=== PATIENT | male | born 1940 | race Caucasian/White ===

== ENCOUNTER 2020-06-28 14:33 | Inpatient (IN) ==
[2020-06-28] MEDS ORDERED: Isovue-370 500 ML BOTTLE IVP ONE (14:53)
[2020-06-28 15:10] LABS: Basophils % 0.2 %; Eosinophils % 0.1 %; Immature Granulocytes % 0.5 % (0-4); Lymphocytes % 5.3 %; Mean Corpuscular HGB Conc 33.3 g/dL (31.6-35.5); Mean Corpuscular Hemoglobin 29.2 pg (28.0-33.3); Mean Corpuscular Volume 87.7 fL (83.0-100.0); Mean Platelet Volume 10.2 fL (9.4-12.4); Monocytes % 5.3 %; Neutrophils # 16.4 K/mcL (1.6-8.9); Platelet Count 345 K/mcL (140-400); Red Blood Count 5.13 M/mcL (4.19-5.50); Red Cell Distribution Width 13.1 % (11.5-14.5); Segmented Neutrophils % 88.6 %; White Blood Count 18.5 K/mcL (4.3-11.1)
[2020-06-28 15:33] LABS: Alanine Aminotransferase 12 Units/L (7-52); Albumin 4.5 g/dL (3.5-5.7); Albumin/Globulin Ratio 1.2 (1.1-2.2); Alkaline Phosphatase 61 Units/L (34-104); Aspartate Amino Transferase 15 Units/L (13-39); BUN/Creatinine Ratio 30 (6-26); Bilirubin,Direct 0.4 mg/dL (0.0-0.2); Bilirubin,Indirect 0.5 mg/dL (0.0-1.0); Bilirubin,Total 0.9 mg/dL (0.3-1.0); Blood Urea Nitrogen 30 mg/dL (8-23); Carbon Dioxide 30 mEq/L (23-29); Chloride 90 mEq/L (98-107); Globulin 3.9 g/dL (2.4-3.5); Glucose 118 mg/dL (70-105); Lipase 21 Units/L (11-82); Osmolality,Calculated 287 (280-300); Potassium 3.1 mEq/L (3.5-5.1); Sodium 135 mEq/L (136-145); Total Protein 8.4 g/dL (6.4-8.9); eGFR For African Americans > 60 (> 60); eGFR For Non-African Americans > 60 (> 60)
[2020-06-28] MEDS ORDERED: Ondansetron 4 MG/2 ML VIAL IVP PRN (17:52)
[2020-06-28] MEDS ORDERED: Naloxone 0.4 MG/ML INJ IVP PRN (17:52)
[2020-06-28 18:10] LABS: Bacteria,Urine Few per hpf (None-Few); Bilirubin,Urine Negative (Negative); Blood,Urine Negative (Negative); Clarity,Urine Turbid (Clear); Color,Urine Yellow (Yellow); Glucose,Urine (UA) Normal (Normal); Hyaline Casts,Urine Many per lpf (None Seen); Ketones,Urine 60 mg/dL (Negative); Leukocyte Esterase,Urine Negative (Negative); Mucus,Urine Few per lpf (None-Few); Nitrite,Urine Negative (Negative); Protein,Urine Trace mg/dL (Neg-Trace); Specific Gravity,Urine 1.025 (1.010-1.025); Squamous Epithelial Cell,Urine Few per hpf (None-Few)
[2020-06-28] MEDS: 0.9 % Sodium Chloride 1,000 ML IVC SCH (20:33)
[2020-06-29] MEDS: Piperacillin/Tazobactam 3.375 GM in 0.9 % Sodium Chloride Mini Bag 100 ML IVPB SCH ×3 (01:12→17:35)
[2020-06-29] MEDS: 0.9 % Sodium Chloride 1,000 ML IVC SCH ×3 (05:34→21:09)
[2020-06-29 05:56] LABS: Basophils % 0.3 %; Eosinophils # 0.1 K/mcL (0.0-0.6); Eosinophils % 0.5 %; Hematocrit 38.2 % (37.5-50.1); Immature Granulocytes % 0.7 % (0-4); Lymphocytes # 1.1 K/mcL (0.6-4.6); Lymphocytes % 8.1 %; Mean Corpuscular HGB Conc 33.5 g/dL (31.6-35.5); Mean Corpuscular Hemoglobin 29.4 pg (28.0-33.3); Mean Corpuscular Volume 87.6 fL (83.0-100.0); Mean Platelet Volume 9.8 fL (9.4-12.4); Monocytes # 0.8 K/mcL (0.0-1.3); Monocytes % 6.5 %; Neutrophils # 10.9 K/mcL (1.6-8.9); Platelet Count 278 K/mcL (140-400); Red Blood Count 4.36 M/mcL (4.19-5.50); Red Cell Distribution Width 13.2 % (11.5-14.5); Segmented Neutrophils % 83.9 %
[2020-06-29 05:59] LABS: Hemoglobin 12.8 g/dL (12.9-16.9); INR 1.2; Prothrombin Time 13.7 Seconds (9.4-12.1)
[2020-06-29 06:02] LABS: Activated Partial Thrombo Time 30.3 Seconds (26.0-36.0)
[2020-06-29 06:15] LABS: BUN/Creatinine Ratio 34 (6-26); Blood Urea Nitrogen 25 mg/dL (8-23); Calcium 9.1 mg/dL (8.6-10.3); Carbon Dioxide 30 mEq/L (23-29); Chloride 95 mEq/L (98-107); Glucose 104 mg/dL (70-105); Osmolality,Calculated 287 (280-300); Sodium 136 mEq/L (136-145); eGFR For African Americans > 60 (> 60); eGFR For Non-African Americans > 60 (> 60)
[2020-06-29] MEDS ORDERED: Potassium Chloride 40 MEQ, Lidocaine 1% 2 ML in 0.9 % Sodium Chloride 500 ML IVPB ONE (07:37)
[2020-06-29 08:02] LABS: Magnesium 1.7 mg/dL (1.6-2.6); Phosphorous 2.6 mg/dL (2.7-4.5)
[2020-06-29 09:08] LABS: Adenovirus Not Detected (Not Detect); Coronavirus 229E Not Detected (Not Detect); Coronavirus HKU1 Not Detected (Not Detect); Coronavirus NL63 Not Detected (Not Detect); Coronavirus OC43 Not Detected (Not Detect); SARS-CoV-2 Not Detected (Not Detect)
[2020-06-29 09:09] LABS: Bordetella Pertussis Not Detected (Not Detect); Chlamydophila pneumoniae Not Detected (Not Detect); Human Metapneumovirus Not Detected (Not Detect); Human Rhinovirus/Enterovirus Not Detected (Not Detect); Influenza A Subtype 2009 H1 Not Detected (Not Detect); Influenza B Not Detected (Not Detect); Mycoplasma pneumoniae Not Detected (Not Detect); Parainfluenza Virus 1 Not Detected (Not Detect); Parainfluenza Virus 2 Not Detected (Not Detect); Parainfluenza Virus 3 Not Detected (Not Detect); Parainfluenza Virus 4 Not Detected (Not Detect); Respiratory Syncytial Virus Not Detected (Not Detect)
[2020-06-29] MEDS ORDERED: *HR* Succinylcholine 200 MG/10 ML VIAL IVP ONE (11:05)
[2020-06-29] MEDS ORDERED: *HR* Midazolam HCl 2 MG/2 ML VIAL ONE (11:05)
[2020-06-29] MEDS ORDERED: Dexamethasone 4 MG/ML VIAL ONE (11:06)
[2020-06-29] MEDS ORDERED: *HR* Propofol 200 MG/20 ML VIAL IVP ONE (11:06)
[2020-06-29] MEDS ORDERED: *HR* HYDROmorphone (PF) 1 MG/ML SYRINGE IVP PRN ×2 (11:06→16:42)
[2020-06-29] MEDS ORDERED: *HR* Labetalol 20 MG/4 ML SYRINGE IVP PRN (11:06)
[2020-06-29] MEDS ORDERED: Lidocaine -MPF 2% 2 ML VIAL ONE (11:06)
[2020-06-29] MEDS ORDERED: *HR* FentaNYL (PF) 100 MCG/2 ML VIAL ONE ×3 (11:06→13:58)
[2020-06-29] MEDS ORDERED: Ondansetron 4 MG/2 ML VIAL IVP PRN ×2 (11:06→16:48)
[2020-06-29] MEDS ORDERED: *HR* Rocuronium Bromide 50 MG/5 ML VIAL ONE (11:06)
[2020-06-29] MEDS ORDERED: *HR* OxyCODONE Immed Rel 5 MG TABLET PO PRN (11:06)
[2020-06-29] MEDS ORDERED: EPHEDrine 50 MG/ML VIAL ONE (11:08)
[2020-06-29] MEDS ORDERED: Albumin Human 5% 12.5 GM/250 ML IV.SOLN ONE (11:10)
[2020-06-29] MEDS ORDERED: *HR* Vasopressin 20 UNIT/ML VIAL ONE (11:11)
[2020-06-29] MEDS ORDERED: Lidocaine HCL 4 ML Topical Solution (Laryng-O-Jet Kit Sterile Pak) TP ONE (11:13)
[2020-06-29] MEDS ORDERED: *HR* PHENYLEPHRINE 1,000 MCG/10 ML SYRINGE IVP ONE (11:46)
[2020-06-29] MEDS ORDERED: *HR* HYDROMORPHONE 2 MG/ML VIAL ONE (11:56)
[2020-06-29] MEDS ORDERED: Potassium Phosphate 44 MEQ in 0.9 % Sodium Chloride 250 ML IVPB ONE ×2 (13:37→16:48)
[2020-06-29] MEDS ORDERED: *HR* HYDROmorphone (PF) 1 MG/ML SYRINGE IVP ONE ×2 (16:41→16:48)
[2020-06-29] MEDS ORDERED: Naloxone 0.4 MG/ML INJ IVP PRN (16:48)
[2020-06-29] MEDS: *HR* Heparin 5,000 UNIT/ML VIAL SQ SCH (17:25)
[2020-06-29] MEDS ORDERED: *HR* Heparin 5,000 UNIT/ML VIAL SQ SCH (18:00)
[2020-06-29] MEDS ORDERED: 0.9 % Sodium Chloride 1,000 ML IVC ONE (18:07)
[2020-06-30] MEDS ORDERED: Piperacillin/Tazobactam 3.375 GM in 0.9 % Sodium Chloride Mini Bag 100 ML IVPB SCH ×2
[2020-06-30] MEDS: *HR* HYDROmorphone (PF) 1 MG/ML SYRINGE IVP PRN ×4 (02:22→16:12)
[2020-06-30] MEDS: Piperacillin/Tazobactam 3.375 GM in 0.9 % Sodium Chloride Mini Bag 100 ML IVPB SCH ×3 (02:32→17:21)
[2020-06-30] MEDS: 0.9 % Sodium Chloride 1,000 ML IVC SCH ×3 (02:34→17:22)
[2020-06-30] MEDS: *HR* Heparin 5,000 UNIT/ML VIAL SQ SCH ×2 (05:44→17:21)
[2020-06-30 07:00] LABS: Hematocrit 37.4 % (37.5-50.1); Mean Corpuscular HGB Conc 32.1 g/dL (31.6-35.5); Mean Corpuscular Hemoglobin 29.4 pg (28.0-33.3); Mean Corpuscular Volume 91.7 fL (83.0-100.0); Mean Platelet Volume 10.3 fL (9.4-12.4); Platelet Count 257 K/mcL (140-400); Red Blood Count 4.08 M/mcL (4.19-5.50); Red Cell Distribution Width 13.4 % (11.5-14.5)
[2020-06-30 07:17] LABS: BUN/Creatinine Ratio 24 (6-26); Blood Urea Nitrogen 20 mg/dL (8-23); Calcium 8.1 mg/dL (8.6-10.3); Carbon Dioxide 28 mEq/L (23-29); Chloride 105 mEq/L (98-107); Glucose 121 mg/dL (70-105); Osmolality,Calculated 300 (280-300); Sodium 143 mEq/L (136-145); eGFR For African Americans > 60 (> 60); eGFR For Non-African Americans > 60 (> 60)
[2020-06-30 08:10] LABS: Lymphocytes # 1.3 K/mcL (0.6-4.6); Monocytes # 0.4 K/mcL (0.0-1.3); Neutrophils # 19.3 K/mcL (1.6-8.9); Platelet Estimate Normal (Normal)
[2020-06-30] MEDS: Levothyroxine Sodium 100 MCG VIAL IVP SCH (08:25)
[2020-06-30] MEDS: Pantoprazole 40 MG VIAL IVP SCH (08:26)
[2020-06-30] MEDS ORDERED: Pantoprazole 40 MG VIAL IVP SCH (09:00)
[2020-06-30 17:19] LABS: ABG Base Excess 3 mEq/L (-2 to 3); ABG HCO3 28 mEq/L (21-27); ABG Oxygen Saturation 91 % (95-98); ABG PCO2 45 mmHg (35-45); ABG PO2 61 mmHg (85-104); ABG TCO2 29 mEq/L (20-26)
[2020-06-30] MEDS ORDERED: hydrALAZINE 10 MG TABLET PO PRN (17:51)
[2020-06-30] MEDS ORDERED: *HR* Metoprolol 5 MG/5 ML VIAL IVP PRN (17:51)
[2020-07-01] MEDS: Piperacillin/Tazobactam 3.375 GM in 0.9 % Sodium Chloride Mini Bag 100 ML IVPB SCH ×3 (01:31→17:28)
[2020-07-01] MEDS: 0.9 % Sodium Chloride 1,000 ML IVC SCH ×3 (02:41→17:30)
[2020-07-01 04:27] LABS: Basophils % 0.1 %; Hematocrit 31.7 % (37.5-50.1); Immature Granulocytes % 0.7 % (0-4); Lymphocytes # 0.6 K/mcL (0.6-4.6); Lymphocytes % 3.1 %; Mean Corpuscular HGB Conc 31.9 g/dL (31.6-35.5); Mean Corpuscular Volume 91.1 fL (83.0-100.0); Mean Platelet Volume 10.7 fL (9.4-12.4); Monocytes # 0.6 K/mcL (0.0-1.3); Monocytes % 2.9 %; Neutrophils # 18.3 K/mcL (1.6-8.9); Platelet Count 217 K/mcL (140-400); Red Blood Count 3.48 M/mcL (4.19-5.50); Red Cell Distribution Width 13.8 % (11.5-14.5); Segmented Neutrophils % 93.2 %; White Blood Count 19.6 K/mcL (4.3-11.1)
[2020-07-01 04:33] LABS: Hemoglobin 10.1 g/dL (12.9-16.9)
[2020-07-01 04:42] LABS: BUN/Creatinine Ratio 28 (6-26); Blood Urea Nitrogen 16 mg/dL (8-23); Calcium 7.6 mg/dL (8.6-10.3); Carbon Dioxide 28 mEq/L (23-29); Chloride 109 mEq/L (98-107); Glucose 111 mg/dL (70-105); Osmolality,Calculated 300 (280-300); Potassium 3.1 mEq/L (3.5-5.1); Sodium 144 mEq/L (136-145); eGFR For African Americans > 60 (> 60); eGFR For Non-African Americans > 60 (> 60)
[2020-07-01 04:44] LABS: Magnesium 1.6 mg/dL (1.6-2.6); Phosphorous 1.8 mg/dL (2.7-4.5)
[2020-07-01] MEDS: *HR* Heparin 5,000 UNIT/ML VIAL SQ SCH ×2 (05:40→17:30)
[2020-07-01] MEDS: Pantoprazole 40 MG VIAL IVP SCH (07:38)
[2020-07-01] MEDS: Levothyroxine Sodium 100 MCG VIAL IVP SCH (07:39)
[2020-07-01] MEDS ORDERED: Calcium Gluconate 1gm/50mL 1 GM/50 ML BAG IVPB ONE (07:42)
[2020-07-01] MEDS ORDERED: Isovue-370 500 ML BOTTLE IVP ONE ×2 (11:14→11:52)
[2020-07-01] MEDS: Multivitamin Liquid 15 ML UDC PO SCH (11:28)
[2020-07-01] MEDS: Gabapentin 300 MG CAPSULE PO SCH ×3 (11:28→20:11)
[2020-07-01 11:41] LABS: Hematocrit 33.7 % (37.5-50.1); Hemoglobin 10.7 g/dL (12.9-16.9)
[2020-07-01] MEDS: Ipratropium/Albuterol Neb 3 ML IH SCH ×4 (11:58→23:40)
[2020-07-01 11:59] LABS: ABG Base Excess 5 mEq/L (-2 to 3); ABG HCO3 29 mEq/L (21-27); ABG Oxygen Saturation 93 % (95-98); ABG PCO2 42 mmHg (35-45); ABG PH 7.45 pH Units (7.32-7.45); ABG PO2 65 mmHg (85-104); ABG TCO2 31 mEq/L (20-26)
[2020-07-01 12:22] LABS: Ferritin 268 ng/mL (20-250); Iron < 10 mcg/dL (65-175); Transferrin 141 mg/dL (203-362)
[2020-07-01 12:24] LABS: Folate 7.1 ng/mL (3.0-16.0)
[2020-07-01 13:45] LABS: Thyroid Stimulating Hormone 1.127 mcIU/mL (0.340-5.600)
[2020-07-01] MEDS ORDERED: *HR* LORazepam 2 MG/ML VIAL IVP ONE (13:48)
[2020-07-01] MEDS: Acetaminophen IV 1,000 MG/100 ML INFUS..BTL IVPB SCH ×2 (14:38→20:59)
[2020-07-01] MEDS: MetroNIDAZOLE 500 MG/100 ML 500 MG/100 ML BAG IVPB SCH ×2 (14:38→20:14)
[2020-07-01] MEDS: Vancomycin 1,250 MG/262.5 ML IV.SOLN IVPB SCH ×2 (14:38→23:30)
[2020-07-01] MEDS ORDERED: Iron Sucrose Complex 400 MG in 0.9 % Sodium Chloride 250 ML IVPB ONE (16:21)
[2020-07-01] MEDS ORDERED: Haloperidol Lactate 5 MG/ML VIAL IM ONE (23:12)
[2020-07-02] MEDS: 0.9 % Sodium Chloride 1,000 ML IVC SCH ×2 (01:42→11:11)
[2020-07-02] MEDS: Piperacillin/Tazobactam 3.375 GM in 0.9 % Sodium Chloride Mini Bag 100 ML IVPB SCH ×3 (01:43→17:16)
[2020-07-02] MEDS: Ipratropium/Albuterol Neb 3 ML IH SCH ×6 (03:53→23:26)
[2020-07-02] MEDS: *HR* Heparin 5,000 UNIT/ML VIAL SQ SCH ×2 (04:55→17:26)
[2020-07-02] MEDS: MetroNIDAZOLE 500 MG/100 ML 500 MG/100 ML BAG IVPB SCH (04:55)
[2020-07-02 05:20] LABS: Basophils % 0.1 %; Hematocrit 31.3 % (37.5-50.1); Hemoglobin 10.1 g/dL (12.9-16.9); Immature Granulocytes % 0.9 % (0-4); Lymphocytes # 0.6 K/mcL (0.6-4.6); Lymphocytes % 2.6 %; Mean Corpuscular HGB Conc 32.3 g/dL (31.6-35.5); Mean Corpuscular Hemoglobin 29.6 pg (28.0-33.3); Mean Corpuscular Volume 91.8 fL (83.0-100.0); Mean Platelet Volume 11.2 fL (9.4-12.4); Monocytes # 0.5 K/mcL (0.0-1.3); Monocytes % 2.1 %; Neutrophils # 23.2 K/mcL (1.6-8.9); Platelet Count 204 K/mcL (140-400); Red Blood Count 3.41 M/mcL (4.19-5.50); Segmented Neutrophils % 94.3 %; White Blood Count 24.6 K/mcL (4.3-11.1)
[2020-07-02 06:44] LABS: Alanine Aminotransferase 10 Units/L (7-52); Albumin 2.8 g/dL (3.5-5.7); Alkaline Phosphatase 46 Units/L (34-104); Aspartate Amino Transferase 20 Units/L (13-39); BUN/Creatinine Ratio 20 (6-26); Bilirubin,Total 0.6 mg/dL (0.3-1.0); Blood Urea Nitrogen 10 mg/dL (8-23); Carbon Dioxide 28 mEq/L (23-29); Chloride 110 mEq/L (98-107); Globulin 2.9 g/dL (2.4-3.5); Glucose 111 mg/dL (70-105); Magnesium 1.6 mg/dL (1.6-2.6); Osmolality,Calculated 300 (280-300); Phosphorous 1.5 mg/dL (2.7-4.5); Potassium 2.7 mEq/L (3.5-5.1); Sodium 145 mEq/L (136-145); Total Protein 5.7 g/dL (6.4-8.9); eGFR For African Americans > 60 (> 60); eGFR For Non-African Americans > 60 (> 60)
[2020-07-02 06:54] LABS: Platelet Estimate Normal (Normal)
[2020-07-02] MEDS: Acetaminophen IV 1,000 MG/100 ML INFUS..BTL IVPB SCH ×4 (07:52→21:59)
[2020-07-02] MEDS ORDERED: MethylPREDNISolone 40 MG/ML VIAL IVP SCH (09:00)
[2020-07-02] MEDS ORDERED: Potassium Phosphate 44 MEQ in 0.9 % Sodium Chloride 250 ML IVPB ONE (09:11)
[2020-07-02] MEDS: Pantoprazole 40 MG VIAL IVP SCH (10:22)
[2020-07-02] MEDS: Levothyroxine Sodium 100 MCG VIAL IVP SCH (10:23)
[2020-07-02] MEDS: Gabapentin 300 MG CAPSULE PO SCH ×3 (11:02→19:33)
[2020-07-02] MEDS: Multivitamin Liquid 15 ML UDC PO SCH (11:02)
[2020-07-02] MEDS ORDERED: Furosemide 40 MG/4 ML VIAL IVP ONE (11:34)
[2020-07-02] MEDS: MethylPREDNISolone 40 MG/ML VIAL IVP SCH ×2 (12:19→17:09)
[2020-07-02] MEDS: Vancomycin 1,250 MG/262.5 ML IV.SOLN IVPB SCH (13:20)
[2020-07-02] MEDS ORDERED: Morphine Sulfate 2 MG/ML SYRINGE IVP ONE (16:48)
[2020-07-02] MEDS ORDERED: *HR* Metoprolol 5 MG/5 ML VIAL IVP PRN (16:49)
[2020-07-03] MEDS: MethylPREDNISolone 40 MG/ML VIAL IVP SCH ×4 (00:36→23:29)
[2020-07-03] MEDS: Vancomycin 1,250 MG/262.5 ML IV.SOLN IVPB SCH (00:36)
[2020-07-03] MEDS: Piperacillin/Tazobactam 3.375 GM in 0.9 % Sodium Chloride Mini Bag 100 ML IVPB SCH ×3 (01:52→17:10)
[2020-07-03] MEDS: Ipratropium/Albuterol Neb 3 ML IH SCH ×6 (03:39→23:54)
[2020-07-03] MEDS: Acetaminophen IV 1,000 MG/100 ML INFUS..BTL IVPB SCH ×3 (04:27→14:30)
[2020-07-03] MEDS: *HR* Heparin 5,000 UNIT/ML VIAL SQ SCH ×2 (06:13→17:10)
[2020-07-03] MEDS: Pantoprazole 40 MG VIAL IVP SCH (07:36)
[2020-07-03] MEDS: Levothyroxine Sodium 100 MCG VIAL IVP SCH (07:36)
[2020-07-03 07:37] LABS: Hematocrit 36.2 % (37.5-50.1); Hemoglobin 11.7 g/dL (12.9-16.9); Mean Corpuscular HGB Conc 32.3 g/dL (31.6-35.5); Mean Corpuscular Hemoglobin 29.3 pg (28.0-33.3); Mean Corpuscular Volume 90.7 fL (83.0-100.0); Mean Platelet Volume 11.2 fL (9.4-12.4); Platelet Count 232 K/mcL (140-400); Red Blood Count 3.99 M/mcL (4.19-5.50); Red Cell Distribution Width 14.1 % (11.5-14.5)
[2020-07-03] MEDS: Gabapentin 300 MG CAPSULE PO SCH ×3 (07:37→19:39)
[2020-07-03] MEDS: Multivitamin Liquid 15 ML UDC PO SCH (07:37)
[2020-07-03 08:27] LABS: Alanine Aminotransferase 9 Units/L (7-52); Albumin 2.9 g/dL (3.5-5.7); Alkaline Phosphatase 38 Units/L (34-104); Aspartate Amino Transferase 18 Units/L (13-39); BUN/Creatinine Ratio 21 (6-26); Bilirubin,Total 0.7 mg/dL (0.3-1.0); Blood Urea Nitrogen 14 mg/dL (8-23); Calcium 7.8 mg/dL (8.6-10.3); Carbon Dioxide 31 mEq/L (23-29); Chloride 108 mEq/L (98-107); Globulin 2.9 g/dL (2.4-3.5); Glucose 129 mg/dL (70-105); Magnesium 1.5 mg/dL (1.6-2.6); Osmolality,Calculated 310 (280-300); Phosphorous 1.8 mg/dL (2.7-4.5); Potassium 2.5 mEq/L (3.5-5.1); Sodium 149 mEq/L (136-145); Total Protein 5.8 g/dL (6.4-8.9); eGFR For African Americans > 60 (> 60); eGFR For Non-African Americans > 60 (> 60)
[2020-07-03] MEDS: Vancomycin 1,750 MG/517.5 ML IV.SOLN IVPB SCH ×2 (13:01→23:29)
[2020-07-03] MEDS ORDERED: Potassium Chloride 20 MEQ in D5% in Water 1,000 ML IVC SCH (14:00)
[2020-07-03] MEDS ORDERED: Potassium Phosphate 44 MEQ in 0.9 % Sodium Chloride 250 ML IVPB ONE (14:03)
[2020-07-03] MEDS ORDERED: Calcium Gluconate 1gm/50mL 1 GM/50 ML BAG IVPB ONE (14:10)
[2020-07-03 18:00] LABS: BUN/Creatinine Ratio 25 (6-26); Blood Urea Nitrogen 20 mg/dL (8-23); Calcium 7.9 mg/dL (8.6-10.3); Carbon Dioxide 29 mEq/L (23-29); Chloride 111 mEq/L (98-107); Glucose 158 mg/dL (70-105); Magnesium 2.2 mg/dL (1.6-2.6); Osmolality,Calculated 318 (280-300); Phosphorous 2.6 mg/dL (2.7-4.5); Potassium 3.2 mEq/L (3.5-5.1); Sodium 151 mEq/L (136-145); eGFR For African Americans > 60 (> 60); eGFR For Non-African Americans > 60 (> 60)
[2020-07-04] MEDS: Piperacillin/Tazobactam 3.375 GM in 0.9 % Sodium Chloride Mini Bag 100 ML IVPB SCH ×3 (01:35→17:13)
[2020-07-04] MEDS: Acetaminophen IV 1,000 MG/100 ML INFUS..BTL IVPB SCH ×2 (01:35→13:21)
[2020-07-04] MEDS: Ipratropium/Albuterol Neb 3 ML IH SCH ×6 (04:20→23:59)
[2020-07-04] MEDS: *HR* Heparin 5,000 UNIT/ML VIAL SQ SCH ×2 (05:33→17:13)
[2020-07-04 06:38] LABS: Hematocrit 34.2 % (37.5-50.1); Hemoglobin 10.7 g/dL (12.9-16.9); Mean Corpuscular HGB Conc 31.3 g/dL (31.6-35.5); Mean Corpuscular Hemoglobin 28.6 pg (28.0-33.3); Mean Corpuscular Volume 91.4 fL (83.0-100.0); Mean Platelet Volume 11.2 fL (9.4-12.4); Platelet Count 217 K/mcL (140-400); Red Blood Count 3.74 M/mcL (4.19-5.50); Red Cell Distribution Width 14.4 % (11.5-14.5); White Blood Count 26.5 K/mcL (4.3-11.1)
[2020-07-04 06:50] LABS: BUN/Creatinine Ratio 31 (6-26); Blood Urea Nitrogen 24 mg/dL (8-23); Calcium 8.1 mg/dL (8.6-10.3); Carbon Dioxide 33 mEq/L (23-29); Chloride 111 mEq/L (98-107); Glucose 162 mg/dL (70-105); Osmolality,Calculated 322 (280-300); Phosphorous 2.1 mg/dL (2.7-4.5); Sodium 152 mEq/L (136-145); eGFR For African Americans > 60 (> 60); eGFR For Non-African Americans > 60 (> 60)
[2020-07-04] MEDS ORDERED: Calcium Gluconate 1gm/50mL 1 GM/50 ML BAG IVPB ONE (07:30)
[2020-07-04] MEDS: MethylPREDNISolone 40 MG/ML VIAL IVP SCH ×2 (08:41→17:13)
[2020-07-04] MEDS: Levothyroxine Sodium 100 MCG VIAL IVP SCH (08:41)
[2020-07-04] MEDS: Multivitamin Liquid 15 ML UDC PO SCH (08:42)
[2020-07-04] MEDS: Gabapentin 300 MG CAPSULE PO SCH ×3 (08:42→23:26)
[2020-07-04] MEDS: Pantoprazole 40 MG VIAL IVP SCH (08:42)
[2020-07-04] MEDS ORDERED: Potassium Phosphate 44 MEQ in 0.9 % Sodium Chloride 250 ML IVPB ONE (09:15)
[2020-07-04] MEDS: Potassium Chloride 20 MEQ in D5% in Water 1,000 ML IVC SCH (09:20)
[2020-07-04] MEDS ORDERED: *HR* Norepinephrine 4 MG/4 ML VIAL IVC ONE (09:53)
[2020-07-04] MEDS ORDERED: Albumin Human 5% 25.0 GM/500 ML IV.SOLN ONE (09:53)
[2020-07-04] MEDS ORDERED: *HR* Vasopressin 20 UNIT/ML VIAL ONE (09:54)
[2020-07-04] MEDS ORDERED: Lidocaine -MPF 4% 5 ML AMPUL ONE (10:13)
[2020-07-04] MEDS ORDERED: EPHEDrine 50 MG/ML VIAL ONE (10:19)
[2020-07-04] MEDS ORDERED: *HR* Propofol 200 MG/20 ML VIAL IVP ONE (10:19)
[2020-07-04] MEDS ORDERED: *HR* PHENYLEPHRINE 1,000 MCG/10 ML SYRINGE IVP ONE (10:19)
[2020-07-04] MEDS ORDERED: *HR* FentaNYL (PF) 100 MCG/2 ML VIAL ONE (10:20)
[2020-07-04] MEDS ORDERED: *HR* Succinylcholine 200 MG/10 ML VIAL IVP ONE (10:21)
[2020-07-04] MEDS ORDERED: *HR* Rocuronium Bromide 50 MG/5 ML VIAL ONE (10:21)
[2020-07-04] MEDS ORDERED: Dexamethasone 4 MG/ML VIAL ONE (10:21)
[2020-07-04] MEDS ORDERED: Lidocaine -MPF 2% 2 ML VIAL ONE (10:21)
[2020-07-04] MEDS ORDERED: Ondansetron 4 MG/2 ML VIAL ONE (10:21)
[2020-07-04] MEDS ORDERED: *HR* Labetalol 20 MG/4 ML SYRINGE IVP PRN (10:56)
[2020-07-04] MEDS ORDERED: Ondansetron 4 MG/2 ML VIAL IVP PRN (10:56)
[2020-07-04] MEDS ORDERED: *HR* HYDROmorphone (PF) 1 MG/ML SYRINGE IVP PRN (10:56)
[2020-07-04] MEDS: Vancomycin 1,750 MG/517.5 ML IV.SOLN IVPB SCH (13:21)
[2020-07-04 17:13] LABS: BUN/Creatinine Ratio 32 (6-26); Blood Urea Nitrogen 22 mg/dL (8-23); Calcium 7.6 mg/dL (8.6-10.3); Carbon Dioxide 33 mEq/L (23-29); Chloride 112 mEq/L (98-107); Glucose 157 mg/dL (70-105); Osmolality,Calculated 319 (280-300); Potassium 3.4 mEq/L (3.5-5.1); Sodium 151 mEq/L (136-145); eGFR For African Americans > 60 (> 60); eGFR For Non-African Americans > 60 (> 60)
[2020-07-04 18:30] LABS: Appearance of Body Fluid Hazy (Clear); Volume of Body Fluid 16 mL
[2020-07-05] MEDS: Vancomycin 1,750 MG/517.5 ML IV.SOLN IVPB SCH
[2020-07-05] MEDS: Potassium Chloride 20 MEQ in D5% in Water 1,000 ML IVC SCH ×2 (00:43→15:35)
[2020-07-05] MEDS: Acetaminophen IV 1,000 MG/100 ML INFUS..BTL IVPB SCH ×2 (01:51→13:17)
[2020-07-05] MEDS: Piperacillin/Tazobactam 3.375 GM in 0.9 % Sodium Chloride Mini Bag 100 ML IVPB SCH ×3 (01:52→16:54)
[2020-07-05] MEDS: *HR* Heparin 5,000 UNIT/ML VIAL SQ SCH ×2 (03:36→17:05)
[2020-07-05] MEDS: Ipratropium/Albuterol Neb 3 ML IH SCH ×5 (04:25→20:03)
[2020-07-05] MEDS: Levothyroxine Sodium 100 MCG VIAL IVP SCH (08:32)
[2020-07-05] MEDS: MethylPREDNISolone 40 MG/ML VIAL IVP SCH ×3 (08:33→15:36)
[2020-07-05] MEDS: Pantoprazole 40 MG VIAL IVP SCH (08:33)
[2020-07-05] MEDS ORDERED: QUEtiapine Fumarate 25 MG TABLET PO SCH (09:00)
[2020-07-05] MEDS: Vancomycin 1,500 MG/265 ML IV.SOLN IVPB SCH ×2 (09:20→22:04)
[2020-07-05 09:42] LABS: Hematocrit 35.3 % (37.5-50.1); Mean Corpuscular HGB Conc 31.2 g/dL (31.6-35.5); Mean Corpuscular Hemoglobin 29.3 pg (28.0-33.3); Mean Corpuscular Volume 93.9 fL (83.0-100.0); Mean Platelet Volume 11.4 fL (9.4-12.4); Platelet Count 199 K/mcL (140-400); Red Blood Count 3.76 M/mcL (4.19-5.50); Red Cell Distribution Width 14.6 % (11.5-14.5); White Blood Count 15.2 K/mcL (4.3-11.1)
[2020-07-05] MEDS: Multivitamin Liquid 15 ML UDC PO SCH (09:42)
[2020-07-05] MEDS: Gabapentin 300 MG CAPSULE PO SCH ×2 (09:42→15:35)
[2020-07-05 09:56] LABS: BUN/Creatinine Ratio 28 (6-26); Blood Urea Nitrogen 19 mg/dL (8-23); Calcium 7.8 mg/dL (8.6-10.3); Carbon Dioxide 36 mEq/L (23-29); Chloride 111 mEq/L (98-107); Glucose 137 mg/dL (70-105); Magnesium 1.8 mg/dL (1.6-2.6); Osmolality,Calculated 320 (280-300); Phosphorous 1.6 mg/dL (2.7-4.5); Potassium 3.3 mEq/L (3.5-5.1); Sodium 153 mEq/L (136-145); eGFR For African Americans > 60 (> 60); eGFR For Non-African Americans > 60 (> 60)
[2020-07-05] MEDS ORDERED: Potassium Phosphate 44 MEQ in 0.9 % Sodium Chloride 250 ML IVPB ONE (11:01)
[2020-07-05] MEDS: Calcium Gluconate 1gm/50mL 1 GM/50 ML BAG IVPB SCH ×2 (11:45→12:29)
[2020-07-05] MEDS: QUEtiapine Fumarate 25 MG TABLET GTUBE SCH (22:12)
[2020-07-05] MEDS: Gabapentin 300 MG CAPSULE GTUBE SCH (22:13)
[2020-07-06] MEDS: MethylPREDNISolone 40 MG/ML VIAL IVP SCH ×3 (00:10→15:24)
[2020-07-06] MEDS: Ipratropium/Albuterol Neb 3 ML IH SCH ×7 (00:23→23:02)
[2020-07-06] MEDS: Acetaminophen IV 1,000 MG/100 ML INFUS..BTL IVPB SCH ×2 (02:31→14:10)
[2020-07-06] MEDS: Piperacillin/Tazobactam 3.375 GM in 0.9 % Sodium Chloride Mini Bag 100 ML IVPB SCH ×3 (02:32→16:55)
[2020-07-06] MEDS: *HR* Heparin 5,000 UNIT/ML VIAL SQ SCH ×2 (06:23→16:54)
[2020-07-06] MEDS: Potassium Chloride 20 MEQ in D5% in Water 1,000 ML IVC SCH ×2 (06:35→09:37)
[2020-07-06 07:01] LABS: Hematocrit 33.1 % (37.5-50.1); Mean Corpuscular HGB Conc 30.2 g/dL (31.6-35.5); Mean Corpuscular Hemoglobin 28.4 pg (28.0-33.3); Mean Platelet Volume 11.6 fL (9.4-12.4); Platelet Count 198 K/mcL (140-400); Red Blood Count 3.52 M/mcL (4.19-5.50); Red Cell Distribution Width 14.6 % (11.5-14.5); White Blood Count 13.5 K/mcL (4.3-11.1)
[2020-07-06 07:23] LABS: BUN/Creatinine Ratio 28 (6-26); Blood Urea Nitrogen 20 mg/dL (8-23); Calcium 7.6 mg/dL (8.6-10.3); Carbon Dioxide 32 mEq/L (23-29); Chloride 111 mEq/L (98-107); Glucose 191 mg/dL (70-105); Magnesium 1.9 mg/dL (1.6-2.6); Osmolality,Calculated 314 (280-300); Phosphorous 1.8 mg/dL (2.7-4.5); Potassium 3.7 mEq/L (3.5-5.1); Sodium 148 mEq/L (136-145); eGFR For African Americans > 60 (> 60); eGFR For Non-African Americans > 60 (> 60)
[2020-07-06] MEDS ORDERED: Potassium Phosphate 44 MEQ in 0.9 % Sodium Chloride 250 ML IVPB ONE (07:32)
[2020-07-06] MEDS: Levothyroxine Sodium 100 MCG VIAL IVP SCH (08:16)
[2020-07-06] MEDS: QUEtiapine Fumarate 25 MG TABLET GTUBE SCH ×2 (08:18→21:22)
[2020-07-06] MEDS: Multivitamin Liquid 15 ML UDC PO SCH (08:19)
[2020-07-06] MEDS: Calcium Gluconate 1gm/50mL 1 GM/50 ML BAG IVPB SCH ×2 (08:23→09:35)
[2020-07-06] MEDS: Pantoprazole 40 MG VIAL IVP SCH (08:33)
[2020-07-06] MEDS: Gabapentin 300 MG CAPSULE GTUBE SCH ×3 (08:33→21:22)
[2020-07-06] MEDS: Vancomycin 1,500 MG/265 ML IV.SOLN IVPB SCH (08:39)
[2020-07-07] MEDS: MethylPREDNISolone 40 MG/ML VIAL IVP SCH ×3 (00:28→15:41)
[2020-07-07] MEDS: Acetaminophen IV 1,000 MG/100 ML INFUS..BTL IVPB SCH ×2 (02:41→14:00)
[2020-07-07] MEDS: Piperacillin/Tazobactam 3.375 GM in 0.9 % Sodium Chloride Mini Bag 100 ML IVPB SCH ×3 (02:41→17:20)
[2020-07-07] MEDS: Ipratropium/Albuterol Neb 3 ML IH SCH ×6 (03:51→23:48)
[2020-07-07] MEDS: *HR* Heparin 5,000 UNIT/ML VIAL SQ SCH ×2 (05:20→17:19)
[2020-07-07] MEDS: QUEtiapine Fumarate 25 MG TABLET GTUBE SCH ×2 (07:39→21:37)
[2020-07-07] MEDS: Gabapentin 300 MG CAPSULE GTUBE SCH ×3 (07:39→21:37)
[2020-07-07] MEDS: Pantoprazole 40 MG VIAL IVP SCH (07:39)
[2020-07-07] MEDS: Levothyroxine Sodium 100 MCG VIAL IVP SCH (07:40)
[2020-07-07] MEDS: Multivitamin Liquid 15 ML UDC PO SCH (07:40)
[2020-07-07] MEDS ORDERED: D5% in Water 1,000 ML IVC SCH (12:45)
[2020-07-07] MEDS ORDERED: hydrALAZINE 10 MG TABLET GTUBE PRN (21:45)
[2020-07-08] MEDS: Piperacillin/Tazobactam 3.375 GM in 0.9 % Sodium Chloride Mini Bag 100 ML IVPB SCH ×3 (01:31→17:27)
[2020-07-08] MEDS: Acetaminophen IV 1,000 MG/100 ML INFUS..BTL IVPB SCH (01:32)
[2020-07-08] MEDS: MethylPREDNISolone 40 MG/ML VIAL IVP SCH (01:32)
[2020-07-08] MEDS ORDERED: Furosemide 40 MG/4 ML VIAL IVP ONE (03:48)
[2020-07-08 03:55] LABS: ABG Base Excess 9 mEq/L (-2 to 3); ABG HCO3 36 mEq/L (21-27); ABG Oxygen Saturation 73 % (95-98); ABG PCO2 58 mmHg (35-45); ABG PO2 40 mmHg (85-104); ABG TCO2 38 mEq/L (20-26)
[2020-07-08] MEDS: Norepinephrine 4 MG/254 ML IV.SOLN IVC SCH ×2 (04:42→07:34)
[2020-07-08] MEDS ORDERED: 0.9 % Sodium Chloride 250 ML IVC SCH (04:45)
[2020-07-08 04:59] LABS: ABG Base Excess 4 mEq/L (-2 to 3); ABG HCO3 33 mEq/L (21-27); ABG Oxygen Saturation 59 % (95-98); ABG PCO2 80 mmHg (35-45); ABG PH 7.23 pH Units (7.32-7.45); ABG PO2 38 mmHg (85-104); ABG TCO2 36 mEq/L (20-26); Blood Gas Modality ASSIST CONTROL; Blood Gas VT 400 cc
[2020-07-08] MEDS ORDERED: Dexmedetomidine HCl 400 MCG/100 ML MLS IVC SCH (05:00)
[2020-07-08] MEDS ORDERED: Pantoprazole 40 MG in 0.9 % Sodium Chloride Mini Bag 100 ML IVC SCH (05:00)
[2020-07-08] MEDS ORDERED: Octreotide 400 MCG in 0.9 % Sodium Chloride 100 ML IVC SCH (05:15)
[2020-07-08] MEDS ORDERED: *HR* Midazolam HCl 2 MG/2 ML VIAL IVP ONE (05:16)
[2020-07-08] MEDS ORDERED: *HR* Midazolam HCl 5 MG/5 ML VIAL IVP ONE ×2 (05:17→05:56)
[2020-07-08] MEDS: Ipratropium/Albuterol Neb 3 ML IH SCH ×6 (05:28→23:49)
[2020-07-08] MEDS: FentaNYL (PF) 1,000 MCG/100 ML IV.SOLN IVC SCH ×2 (05:41→19:33)
[2020-07-08] MEDS ORDERED: Artificial Tears SOLN 15 ML BOTTLE BOTH EYES PRN (06:13)
[2020-07-08 06:15] LABS: Basophils % 0.2 %; Hematocrit 36.9 % (37.5-50.1); Hemoglobin 11.1 g/dL (12.9-16.9); Immature Granulocytes % 0.9 % (0-4); Lymphocytes # 0.2 K/mcL (0.6-4.6); Lymphocytes % 1.8 %; Mean Corpuscular HGB Conc 30.1 g/dL (31.6-35.5); Mean Corpuscular Hemoglobin 28.4 pg (28.0-33.3); Mean Corpuscular Volume 94.4 fL (83.0-100.0); Mean Platelet Volume 12.2 fL (9.4-12.4); Monocytes % 0.3 %; Neutrophils # 11.9 K/mcL (1.6-8.9); Platelet Count 238 K/mcL (140-400); Red Blood Count 3.91 M/mcL (4.19-5.50); Segmented Neutrophils % 96.8 %; White Blood Count 12.3 K/mcL (4.3-11.1)
[2020-07-08] MEDS ORDERED: Phenylephrine 10 MG in 0.9 % Sodium Chloride 250 ML IVC SCH (06:15)
[2020-07-08] MEDS: Midazolam HCl 50 MG/100 ML IV.SOLN IVC SCH (06:20)
[2020-07-08 06:27] LABS: INR 1.2; Prothrombin Time 13.9 Seconds (9.4-12.1)
[2020-07-08 06:31] LABS: Platelet Estimate Normal (Normal)
[2020-07-08 06:35] LABS: BUN/Creatinine Ratio 21 (6-26); Blood Urea Nitrogen 23 mg/dL (8-23); Calcium 7.3 mg/dL (8.6-10.3); Carbon Dioxide 33 mEq/L (23-29); Chloride 111 mEq/L (98-107); Glucose 146 mg/dL (70-105); Magnesium 1.7 mg/dL (1.6-2.6); Osmolality,Calculated 314 (280-300); Phosphorous 3.9 mg/dL (2.7-4.5); Sodium 149 mEq/L (136-145); eGFR For African Americans > 60 (> 60); eGFR For Non-African Americans > 60 (> 60)
[2020-07-08 06:38] LABS: ABG Base Excess 2 mEq/L (-2 to 3); ABG HCO3 31 mEq/L (21-27); ABG Oxygen Saturation 89 % (95-98); ABG PCO2 69 mmHg (35-45); ABG PH 7.26 pH Units (7.32-7.45); ABG PO2 68 mmHg (85-104); ABG TCO2 33 mEq/L (20-26); Blood Gas Modality ASSIST CONTROL; Blood Gas VT 450 cc
[2020-07-08] MEDS: *HR* Heparin 5,000 UNIT/ML VIAL SQ SCH ×2 (06:58→17:27)
[2020-07-08] MEDS ORDERED: 0.9 % Sodium Chloride 1,000 ML ONE (07:41)
[2020-07-08] MEDS ORDERED: Perflutren Lipid Microsphere 1.3 ML in 0.9 % Sodium Chloride 8.7 ML IVP PRN (07:44)
[2020-07-08 07:55] LABS: ABG Base Excess 2 mEq/L (-2 to 3); ABG HCO3 31 mEq/L (21-27); ABG Oxygen Saturation 86 % (95-98); ABG PCO2 76 mmHg (35-45); ABG PH 7.22 pH Units (7.32-7.45); ABG PO2 64 mmHg (85-104); ABG TCO2 34 mEq/L (20-26); Blood Gas Modality AF; Blood Gas VT 450 cc
[2020-07-08] MEDS: Phenylephrine 50 MG in 0.9 % Sodium Chloride 250 ML IVC SCH ×4 (08:01→23:20)
[2020-07-08] MEDS ORDERED: Ringers Solution, Lactated 1,000 ML ONE (08:17)
[2020-07-08] MEDS: Hydrocortisone Sodium Succ 100 MG/2 ML VIAL IVP SCH ×3 (08:19→23:51)
[2020-07-08] MEDS: Artificial Tears SOLN 15 ML BOTTLE BOTH EYES SCH ×5 (08:19→23:49)
[2020-07-08] MEDS ORDERED: Ringers Solution, Lactated 1,000 ML IVC ONE (08:20)
[2020-07-08] MEDS: Levothyroxine Sodium 100 MCG VIAL IVP SCH (08:26)
[2020-07-08] MEDS: Vasopressin 40 UNIT in D5% in Water 100 ML IVC SCH ×2 (09:19→22:43)
[2020-07-08] MEDS: Chlorhexidine Rinse 15 ML MOUTHWASH MM SCH ×2 (09:26→19:41)
[2020-07-08] MEDS: Pantoprazole 40 MG VIAL IVP SCH (09:26)
[2020-07-08] MEDS: Gabapentin 300 MG CAPSULE GTUBE SCH (09:27)
[2020-07-08] MEDS: QUEtiapine Fumarate 25 MG TABLET GTUBE SCH ×2 (09:27→19:57)
[2020-07-08] MEDS: Multivitamin Liquid 15 ML UDC PO SCH (09:27)
[2020-07-08] MEDS: Norepinephrine 16 MG in 0.9 % Sodium Chloride 500 ML IVC SCH ×2 (10:12→19:28)
[2020-07-08] MEDS ORDERED: *HR* Etomidate 20 MG/10 ML AMPUL IVP ONE (12:01)
[2020-07-08] MEDS: Albumin Human 5% 12.5 GM/250 ML IV.SOLN IVC SCH ×2 (12:26→16:23)
[2020-07-08] MEDS ORDERED: Amiodarone Premix 360 MG/200 ML BAG IVC ONE (15:24)
[2020-07-08] MEDS ORDERED: Amiodarone Premix 150 MG/100 ML BAG IVPB ONE (15:24)
[2020-07-08 16:54] LABS: Calcium 7.2 mg/dL (8.6-10.3)
[2020-07-08] MEDS ORDERED: Amiodarone Premix 360 MG/200 ML BAG IVC SCH (22:00)
[2020-07-08 22:25] LABS: Adenovirus Not Detected (Not Detect); Bordetella Pertussis Not Detected (Not Detect); Chlamydophila pneumoniae Not Detected (Not Detect); Coronavirus 229E Not Detected (Not Detect); Coronavirus HKU1 Not Detected (Not Detect); Coronavirus NL63 Not Detected (Not Detect); Coronavirus OC43 Not Detected (Not Detect); Human Metapneumovirus Not Detected (Not Detect); Human Rhinovirus/Enterovirus Not Detected (Not Detect); Influenza A Subtype 2009 H1 Not Detected (Not Detect); Influenza B Not Detected (Not Detect); Mycoplasma pneumoniae Not Detected (Not Detect); Parainfluenza Virus 1 Not Detected (Not Detect); Parainfluenza Virus 2 Not Detected (Not Detect); Parainfluenza Virus 3 Not Detected (Not Detect); Parainfluenza Virus 4 Not Detected (Not Detect); Respiratory Syncytial Virus Not Detected (Not Detect); SARS-CoV-2 Not Detected (Not Detect)
[2020-07-08] MEDS: Amiodarone Premix 360 MG/200 ML BAG IVC SCH (22:44)
[2020-07-09 01:58] LABS: blaKPC Carbapenem-Resist Gene Not Detected (Not Detect)
[2020-07-09 01:59] LABS: Acinetobacter baumannii by PCR Not Detected (Not Detect); Candida albicans by PCR Not Detected (Not Detect); Candida glabrata by PCR Not Detected (Not Detect); Candida krusei by PCR Not Detected (Not Detect); Candida parapsilosis by PCR Not Detected (Not Detect); Candida tropicalis by PCR Not Detected (Not Detect); Enterobacter cloacae Cmplx PCR Not Detected (Not Detect); Enterobacteriaceae by PCR Not Detected (Not Detect); Enterococcus by PCR Not Detected (Not Detect); Escherichia coli by PCR DETECTED (Not Detect); Klebsiella oxytoca by PCR Not Detected (Not Detect); Klebsiella pneumoniae by PCR Not Detected (Not Detect); Proteus by PCR Not Detected (Not Detect); Pseudomonas aeruginosa by PCR Not Detected (Not Detect); Serratia marcescens by PCR Not Detected (Not Detect); Staphylococcus aureus by PCR Not Detected (Not Detect); Staphylococcus by PCR Not Detected (Not Detect); Streptococcus agalactiae(B)PCR Not Detected (Not Detect); Streptococcus by PCR Not Detected (Not Detect); Streptococcus pneumoniae PCR Not Detected (Not Detect); Streptococcus pyogenes (A) PCR Not Detected (Not Detect)
[2020-07-09] MEDS: Piperacillin/Tazobactam 3.375 GM in 0.9 % Sodium Chloride Mini Bag 100 ML IVPB SCH ×3 (02:50→18:11)
[2020-07-09] MEDS: Ipratropium/Albuterol Neb 3 ML IH SCH ×6 (03:40→23:57)
[2020-07-09] MEDS: Artificial Tears SOLN 15 ML BOTTLE BOTH EYES SCH ×6 (03:51→23:20)
[2020-07-09] MEDS: Midazolam HCl 50 MG/100 ML IV.SOLN IVC SCH (03:51)
[2020-07-09 04:25] LABS: Magnesium 1.5 mg/dL (1.6-2.6); Phosphorous 5.7 mg/dL (2.7-4.5); Potassium 4.5 mEq/L (3.5-5.1)
[2020-07-09 04:30] LABS: Troponin I 0.18 ng/mL (< 0.04)
[2020-07-09] MEDS: *HR* Heparin 5,000 UNIT/ML VIAL SQ SCH ×2 (04:35→19:21)
[2020-07-09] MEDS: Phenylephrine 50 MG in 0.9 % Sodium Chloride 250 ML IVC SCH ×3 (04:38→15:44)
[2020-07-09 04:48] LABS: ABG Base Excess -1 mEq/L (-2 to 3); ABG HCO3 28 mEq/L (21-27); ABG Oxygen Saturation 92 % (95-98); ABG PCO2 75 mmHg (35-45); ABG PH 7.18 pH Units (7.32-7.45); ABG PO2 82 mmHg (85-104); ABG TCO2 30 mEq/L (20-26); Blood Gas Modality ASSIST CONTROL; Blood Gas VT 500 cc
[2020-07-09 04:53] LABS: Heparin anti-factor XA UFH < 0.04 IU/mL (0.30-0.70)
[2020-07-09] MEDS ORDERED: *HR* Heparin 5,000 UNIT/ML VIAL IVP PRN ×2 (04:56)
[2020-07-09] MEDS ORDERED: *HR* Heparin 5,000 UNIT/ML VIAL IVP ONE (04:56)
[2020-07-09] MEDS ORDERED: Heparin 25,000UNIT/250ML 1/2NS 25,000 UNIT/250 ML IV.SOLN IVC SCH (05:00)
[2020-07-09 05:08] LABS: Hematocrit 31.1 % (37.5-50.1); Hemoglobin 8.8 g/dL (12.9-16.9); Mean Corpuscular HGB Conc 28.3 g/dL (31.6-35.5); Mean Corpuscular Hemoglobin 28.5 pg (28.0-33.3); Mean Corpuscular Volume 100.6 fL (83.0-100.0); Mean Platelet Volume 13.5 fL (9.4-12.4); Nucleated Red Blood Cells 0.1 /100 WBC (0); Platelet Count 138 K/mcL (140-400); Red Blood Count 3.09 M/mcL (4.19-5.50); Red Cell Distribution Width 15.7 % (11.5-14.5); White Blood Count 28.7 K/mcL (4.3-11.1)
[2020-07-09 05:40] LABS: Lymphocytes # 5.2 K/mcL (0.6-4.6); Monocytes # 1.7 K/mcL (0.0-1.3); Neutrophils # 19.5 K/mcL (1.6-8.9); Platelet Estimate Normal (Normal); Toxic Vacuolation Present (Not Present)
[2020-07-09 05:40] LABS: INR 1.3; Prothrombin Time 15.4 Seconds (9.4-12.1)
[2020-07-09 05:42] LABS: Activated Partial Thrombo Time 34.2 Seconds (26.0-36.0)
[2020-07-09 06:17] LABS: ABG Base Excess 0 mEq/L (-2 to 3); ABG HCO3 28 mEq/L (21-27); ABG Oxygen Saturation 94 % (95-98); ABG PCO2 63 mmHg (35-45); ABG PH 7.25 pH Units (7.32-7.45); ABG PO2 85 mmHg (85-104); ABG TCO2 29 mEq/L (20-26); Blood Gas VT 550 cc
[2020-07-09] MEDS: FentaNYL (PF) 1,000 MCG/100 ML IV.SOLN IVC SCH ×2 (06:59→19:28)
[2020-07-09] MEDS: Norepinephrine 16 MG in 0.9 % Sodium Chloride 500 ML IVC SCH (07:57)
[2020-07-09] MEDS ORDERED: Vancomycin 1,000 MG VIAL ONE (08:36)
[2020-07-09] MEDS ORDERED: 0.9 % Sodium Chloride 250 ML ONE (08:36)
[2020-07-09] MEDS: QUEtiapine Fumarate 25 MG TABLET GTUBE SCH ×2 (08:44→20:05)
[2020-07-09] MEDS: Multivitamin Liquid 15 ML UDC PO SCH (08:44)
[2020-07-09] MEDS: Pantoprazole 40 MG VIAL IVP SCH (08:44)
[2020-07-09] MEDS: Hydrocortisone Sodium Succ 100 MG/2 ML VIAL IVP SCH ×3 (08:44→23:20)
[2020-07-09] MEDS: Chlorhexidine Rinse 15 ML MOUTHWASH MM SCH ×2 (08:45→20:04)
[2020-07-09] MEDS ORDERED: Vancomycin 1,250 MG/262.5 ML IV.SOLN IVPB SCH (09:00)
[2020-07-09] MEDS ORDERED: 0.9 % Sodium Chloride 500 ML ONE (09:35)
[2020-07-09 09:39] LABS: Hematocrit 29.7 % (37.5-50.1); Hemoglobin 8.5 g/dL (12.9-16.9); Immature Platelets 22.2 % (1.1-6.1); Mean Corpuscular HGB Conc 28.6 g/dL (31.6-35.5); Mean Corpuscular Hemoglobin 28.8 pg (28.0-33.3); Mean Corpuscular Volume 100.7 fL (83.0-100.0); Mean Platelet Volume 13.4 fL (9.4-12.4); Nucleated Red Blood Cells 0.2 /100 WBC (0); Platelet Count 136 K/mcL (140-400); Red Blood Count 2.95 M/mcL (4.19-5.50); Red Cell Distribution Width 15.7 % (11.5-14.5)
[2020-07-09 09:49] LABS: Potassium 4.6 mEq/L (3.5-5.1)
[2020-07-09] MEDS: Amiodarone Premix 360 MG/200 ML BAG IVC SCH ×2 (10:00→19:29)
[2020-07-09 10:05] LABS: White Blood Count 30.5 K/mcL (4.3-11.1)
[2020-07-09] MEDS ORDERED: Vancomycin 1 EACH in 0.9 % Sodium Chloride 250 ML IVPB PRN (11:00)
[2020-07-09 11:02] LABS: Hypochromasia Present (Not Present); Lymphocytes # 1.2 K/mcL (0.6-4.6); Monocytes # 1.8 K/mcL (0.0-1.3); Neutrophils # 23.2 K/mcL (1.6-8.9); Platelet Estimate Normal (Normal)
[2020-07-09 11:03] LABS: Toxic Granulation Present (Not Present); Toxic Vacuolation Present (Not Present)
[2020-07-09] MEDS ORDERED: D10% in Water 500 ML IVC PRN (12:28)
[2020-07-09] MEDS ORDERED: *HR* Heparin 5,000 UNIT/ML VIAL ONE (13:16)
[2020-07-09] MEDS ORDERED: 0.9 % Sodium Chloride 1,000 ML PRIME ONE ×2 (15:35)
[2020-07-09] MEDS ORDERED: *HR* Alteplase (Cathflo) 2 MG VIAL IVP PRN (15:35)
[2020-07-09] MEDS: Vasopressin 40 UNIT in D5% in Water 100 ML IVC SCH ×2 (15:44→17:17)
[2020-07-09] MEDS ORDERED: 0.9 % Sodium Chloride 1,000 ML PRIME SCH (15:45)
[2020-07-09 16:06] LABS: Troponin I 0.2 ng/mL (< 0.04)
[2020-07-09] MEDS ORDERED: Clinimix 5%-20% SOLUTION 2,000 ML with MVI, adult with vitamin K 10 ML, Sodium Acetat... IVC SCH (17:00)
[2020-07-09] MEDS ORDERED: Dextrose Gel 15 GM/37.5 ML TUBE PO PRN ×2 (17:30)
[2020-07-09] MEDS ORDERED: D5% in Water 1,000 ML IVC PRN (17:30)
[2020-07-09 17:57] LABS: Nucleated Red Blood Cells 0.1 /100 WBC (0)
[2020-07-09 17:59] LABS: Hemoglobin 8.3 g/dL (12.9-16.9); Immature Platelets 21.1 % (1.1-6.1); Mean Corpuscular HGB Conc 27.7 g/dL (31.6-35.5); Mean Corpuscular Hemoglobin 28.4 pg (28.0-33.3); Mean Corpuscular Volume 102.7 fL (83.0-100.0); Mean Platelet Volume 12.8 fL (9.4-12.4); Platelet Count 156 K/mcL (140-400); Red Blood Count 2.92 M/mcL (4.19-5.50)
[2020-07-09] MEDS: PrismaSATE BGK 4/2.5 5,000 ML CRRT SCH ×2 (18:09→18:10)
[2020-07-09 18:14] LABS: White Blood Count 33.6 K/mcL (4.3-11.1)
[2020-07-09 18:53] LABS: Neutrophils # 26.9 K/mcL (1.6-8.9)
[2020-07-09 18:54] LABS: Hypochromasia Present (Not Present)
[2020-07-09 18:55] LABS: Platelet Estimate Normal (Normal)
[2020-07-09] MEDS: Insulin LISPRO 300 UNITS/3 ML VIAL SQ SCH ×2 (19:26→23:20)
[2020-07-09] MEDS: Fluconazole 400 MG/200 ML 400 MG/200 ML BAG IVPB SCH ×2 (20:04→21:24)
[2020-07-09 21:48] LABS: Hemoglobin 8.3 g/dL (12.9-16.9)
[2020-07-09 21:50] LABS: Hematocrit 28.5 % (37.5-50.1); Immature Platelets 18.7 % (1.1-6.1); Mean Corpuscular HGB Conc 29.1 g/dL (31.6-35.5); Mean Corpuscular Hemoglobin 29.6 pg (28.0-33.3); Mean Corpuscular Volume 101.8 fL (83.0-100.0); Mean Platelet Volume 12.8 fL (9.4-12.4); Nucleated Red Blood Cells 0.2 /100 WBC (0); Platelet Count 133 K/mcL (140-400); Red Cell Distribution Width 15.9 % (11.5-14.5); White Blood Count 26.4 K/mcL (4.3-11.1)
[2020-07-09 22:38] LABS: Lymphocytes # 2.1 K/mcL (0.6-4.6); Neutrophils # 23.8 K/mcL (1.6-8.9); Platelet Estimate Slight Decrease (Normal); Toxic Vacuolation Present (Not Present)
[2020-07-09 22:39] LABS: Tear Drop Cells 1+ (Not Present)
[2020-07-10] MEDS: Midazolam HCl 50 MG/100 ML IV.SOLN IVC SCH (00:05)
[2020-07-10] MEDS: PrismaSATE BGK 4/2.5 5,000 ML CRRT SCH ×10 (00:13→19:09)
[2020-07-10] MEDS: Piperacillin/Tazobactam 3.375 GM in 0.9 % Sodium Chloride Mini Bag 100 ML IVPB SCH ×3 (01:04→17:48)
[2020-07-10] MEDS: Norepinephrine 16 MG in 0.9 % Sodium Chloride 500 ML IVC SCH (03:04)
[2020-07-10] MEDS: Artificial Tears SOLN 15 ML BOTTLE BOTH EYES SCH ×6 (03:06→23:13)
[2020-07-10 03:48] LABS: Hematocrit 28.2 % (37.5-50.1); Red Cell Distribution Width 15.9 % (11.5-14.5)
[2020-07-10] MEDS: Ipratropium/Albuterol Neb 3 ML IH SCH ×6 (03:48→23:20)
[2020-07-10 03:50] LABS: Hemoglobin 8.7 g/dL (12.9-16.9); Mean Corpuscular HGB Conc 30.9 g/dL (31.6-35.5); Mean Corpuscular Hemoglobin 32.2 pg (28.0-33.3); Mean Corpuscular Volume 104.4 fL (83.0-100.0); Mean Platelet Volume 12.4 fL (9.4-12.4); Nucleated Red Blood Cells 0.2 /100 WBC (0); Platelet Count 128 K/mcL (140-400); White Blood Count 28.3 K/mcL (4.3-11.1)
[2020-07-10] MEDS: FentaNYL (PF) 1,000 MCG/100 ML IV.SOLN IVC SCH ×3 (04:05→23:13)
[2020-07-10 04:22] LABS: Platelet Estimate Decreased (Normal)
[2020-07-10 04:24] LABS: ABG Base Excess -3 mEq/L (-2 to 3); ABG HCO3 26 mEq/L (21-27); ABG Oxygen Saturation 82 % (95-98); ABG PCO2 71 mmHg (35-45); ABG PH 7.17 pH Units (7.32-7.45); ABG PO2 60 mmHg (85-104); ABG TCO2 28 mEq/L (20-26); Blood Gas VT 500 cc
[2020-07-10 04:26] LABS: Lymphocytes # 0.6 K/mcL (0.6-4.6); Monocytes # 0.6 K/mcL (0.0-1.3); Neutrophils # 24.3 K/mcL (1.6-8.9)
[2020-07-10] MEDS: Insulin LISPRO 300 UNITS/3 ML VIAL SQ SCH ×6 (05:07→23:26)
[2020-07-10] MEDS: *HR* Heparin 5,000 UNIT/ML VIAL SQ SCH ×2 (05:07→17:48)
[2020-07-10 05:49] LABS: Calcium 5.9 mg/dL (8.6-10.3); Potassium 4.4 mEq/L (3.5-5.1)
[2020-07-10] MEDS: Amiodarone Premix 360 MG/200 ML BAG IVC SCH ×2 (06:11→17:16)
[2020-07-10 06:21] LABS: ABG Base Excess -2 mEq/L (-2 to 3); ABG HCO3 26 mEq/L (21-27); ABG Oxygen Saturation 93 % (95-98); ABG PCO2 69 mmHg (35-45); ABG PH 7.19 pH Units (7.32-7.45); ABG PO2 87 mmHg (85-104); ABG TCO2 28 mEq/L (20-26); Blood Gas Modality AF; Blood Gas VT 500 cc
[2020-07-10 06:51] LABS: VBG Ionized Calcium 0.98 mmol/L (1.15-1.35)
[2020-07-10] MEDS: Calcium Gluconate 1gm/50mL 1 GM/50 ML BAG IVPB PRN (07:38)
[2020-07-10] MEDS: Hydrocortisone Sodium Succ 100 MG/2 ML VIAL IVP SCH ×3 (08:27→23:19)
[2020-07-10] MEDS: Chlorhexidine Rinse 15 ML MOUTHWASH MM SCH ×2 (08:27→20:21)
[2020-07-10] MEDS: QUEtiapine Fumarate 25 MG TABLET GTUBE SCH ×2 (08:27→20:19)
[2020-07-10] MEDS: Multivitamin Liquid 15 ML UDC PO SCH (08:27)
[2020-07-10] MEDS: Pantoprazole 40 MG VIAL IVP SCH (08:28)
[2020-07-10] MEDS: Fluconazole 400 MG/200 ML 400 MG/200 ML BAG IVPB SCH ×2 (08:28→20:19)
[2020-07-10] MEDS: Potassium Chloride 20 MEQ in D5% in Water 1,000 ML IVC SCH (11:09)
[2020-07-10 11:43] LABS: Mean Platelet Volume 12.8 fL (9.4-12.4); Red Cell Distribution Width 15.5 % (11.5-14.5)
[2020-07-10 11:44] LABS: Hematocrit 26.9 % (37.5-50.1); Mean Corpuscular HGB Conc 29.7 g/dL (31.6-35.5); Mean Corpuscular Hemoglobin 30.2 pg (28.0-33.3); Mean Corpuscular Volume 101.5 fL (83.0-100.0); Monocytes # 0.5 K/mcL (0.0-1.3); Nucleated Red Blood Cells 0.2 /100 WBC (0); Platelet Count 115 K/mcL (140-400); Red Blood Count 2.65 M/mcL (4.19-5.50); White Blood Count 25.7 K/mcL (4.3-11.1)
[2020-07-10 11:56] LABS: Calcium 7.1 mg/dL (8.6-10.3); Potassium 4.5 mEq/L (3.5-5.1)
[2020-07-10 12:17] LABS: Lymphocytes # 0.5 K/mcL (0.6-4.6); Neutrophils # 21.1 K/mcL (1.6-8.9)
[2020-07-10 12:18] LABS: Basophilic Stippling 1+ (Not Present); Platelet Estimate Normal (Normal)
[2020-07-10 12:39] LABS: Magnesium 2.4 mg/dL (1.6-2.6); Phosphorous 2.8 mg/dL (2.7-4.5)
[2020-07-10] MEDS ORDERED: *HR* Heparin 5,000 UNIT/ML VIAL ONE ×2 (17:00→18:08)
[2020-07-10] MEDS ORDERED: Clinimix 5%-20% SOLUTION 2,000 ML with MVI, adult with vitamin K 10 ML, Sodium Acetat... IVC SCH (17:00)
[2020-07-10] MEDS: *HR* Heparin 5,000 UNIT/ML VIAL CRRT PRN ×2 (17:47→19:08)
[2020-07-11] MEDS: PrismaSATE BGK 4/2.5 5,000 ML CRRT SCH ×10 (00:08→20:57)
[2020-07-11] MEDS: Vasopressin 40 UNIT in D5% in Water 100 ML IVC SCH ×2 (00:08→17:37)
[2020-07-11] MEDS: Piperacillin/Tazobactam 3.375 GM in 0.9 % Sodium Chloride Mini Bag 100 ML IVPB SCH ×3 (02:42→17:27)
[2020-07-11] MEDS: Insulin LISPRO 300 UNITS/3 ML VIAL SQ SCH ×4 (03:08→17:29)
[2020-07-11] MEDS: Artificial Tears SOLN 15 ML BOTTLE BOTH EYES SCH ×4 (03:08→17:29)
[2020-07-11] MEDS: Midazolam HCl 50 MG/100 ML IV.SOLN IVC SCH (03:09)
[2020-07-11] MEDS: Ipratropium/Albuterol Neb 3 ML IH SCH ×6 (03:38→23:35)
[2020-07-11 04:15] LABS: ABG Base Excess -2 mEq/L (-2 to 3); ABG HCO3 26 mEq/L (21-27); ABG Oxygen Saturation 87 % (95-98); ABG PCO2 64 mmHg (35-45); ABG PH 7.23 pH Units (7.32-7.45); ABG PO2 65 mmHg (85-104); ABG TCO2 28 mEq/L (20-26); Blood Gas VT 520 cc
[2020-07-11] MEDS: Amiodarone Premix 360 MG/200 ML BAG IVC SCH (05:00)
[2020-07-11] MEDS: *HR* Heparin 5,000 UNIT/ML VIAL SQ SCH ×2 (05:44→17:26)
[2020-07-11 06:16] LABS: ABG Ionized Calcium 1.03 mmol/L (1.15-1.35)
[2020-07-11] MEDS ORDERED: Vancomycin 1,000 MG VIAL ONE (08:30)
[2020-07-11] MEDS ORDERED: 0.9 % Sodium Chloride 250 ML ONE ×2 (08:30→16:09)
[2020-07-11] MEDS: Chlorhexidine Rinse 15 ML MOUTHWASH MM SCH ×2 (08:33→20:00)
[2020-07-11] MEDS: Pantoprazole 40 MG VIAL IVP SCH (08:33)
[2020-07-11] MEDS: Hydrocortisone Sodium Succ 100 MG/2 ML VIAL IVP SCH (08:33)
[2020-07-11] MEDS: Fluconazole 400 MG/200 ML 400 MG/200 ML BAG IVPB SCH ×2 (08:34→19:59)
[2020-07-11] MEDS: Calcium Gluconate 1gm/50mL 1 GM/50 ML BAG IVPB PRN ×2 (08:35→17:24)
[2020-07-11] MEDS: Multivitamin Liquid 15 ML UDC PO SCH (08:35)
[2020-07-11] MEDS: QUEtiapine Fumarate 25 MG TABLET GTUBE SCH ×2 (08:36→20:00)
[2020-07-11] MEDS: Dexmedetomidine HCl 400 MCG/100 ML MLS IVC SCH (08:41)
[2020-07-11 08:57] LABS: Potassium 4.4 mEq/L (3.5-5.1)
[2020-07-11] MEDS: FentaNYL (PF) 1,000 MCG/100 ML IV.SOLN IVC SCH ×2 (09:00→17:00)
[2020-07-11 11:17] LABS: Magnesium 2.2 mg/dL (1.6-2.6)
[2020-07-11 12:30] LABS: Nucleated Red Blood Cells 0.4 /100 WBC (0)
[2020-07-11 12:32] LABS: Hematocrit 24.1 % (37.5-50.1); Immature Platelets 22.2 % (1.1-6.1); Mean Corpuscular Hemoglobin 28.5 pg (28.0-33.3); Mean Platelet Volume 13.4 fL (9.4-12.4); Red Blood Count 2.46 M/mcL (4.19-5.50); Red Cell Distribution Width 15.1 % (11.5-14.5); White Blood Count 25.6 K/mcL (4.3-11.1)
[2020-07-11 12:46] LABS: Platelet Count 97 K/mcL (140-400)
[2020-07-11 12:51] LABS: Lymphocytes # 0.3 K/mcL (0.6-4.6); Monocytes # 0.5 K/mcL (0.0-1.3); Neutrophils # 23.8 K/mcL (1.6-8.9)
[2020-07-11 12:52] LABS: Basophilic Stippling 1+ (Not Present); Platelet Estimate Slight Decrease (Normal)
[2020-07-11 13:29] LABS: VBG Ionized Calcium 1.03 mmol/L (1.15-1.35)
[2020-07-11] MEDS: Norepinephrine 16 MG in 0.9 % Sodium Chloride 500 ML IVC SCH (17:00)
[2020-07-11] MEDS ORDERED: Clinimix 5%-20% SOLUTION 2,000 ML with MVI, adult with vitamin K 10 ML, Sodium Acetat... IVC SCH (17:00)
[2020-07-11] MEDS: MethylPREDNISolone 40 MG/ML VIAL IVP SCH (17:28)
[2020-07-11 23:29] LABS: Hematocrit 24.8 % (37.5-50.1); Hemoglobin 7.9 g/dL (12.9-16.9)
[2020-07-11 23:30] LABS: ABG Ionized Calcium 1.05 mmol/L (1.15-1.35)
[2020-07-12] MEDS: Insulin LISPRO 300 UNITS/3 ML VIAL SQ SCH ×8 (00:16→23:11)
[2020-07-12] MEDS: Artificial Tears SOLN 15 ML BOTTLE BOTH EYES SCH ×7 (00:17→23:10)
[2020-07-12] MEDS: Calcium Gluconate 1gm/50mL 1 GM/50 ML BAG IVPB PRN ×2 (01:30→09:38)
[2020-07-12] MEDS: FentaNYL (PF) 1,000 MCG/100 ML IV.SOLN IVC SCH ×4 (01:30→23:04)
[2020-07-12] MEDS: PrismaSATE BGK 4/2.5 5,000 ML CRRT SCH ×10 (01:56→23:06)
[2020-07-12] MEDS: Piperacillin/Tazobactam 3.375 GM in 0.9 % Sodium Chloride Mini Bag 100 ML IVPB SCH ×3 (03:05→17:21)
[2020-07-12] MEDS: Ipratropium/Albuterol Neb 3 ML IH SCH ×6 (04:00→23:51)
[2020-07-12 04:43] LABS: ABG Base Excess 1 mEq/L (-2 to 3); ABG HCO3 27 mEq/L (21-27); ABG Oxygen Saturation 92 % (95-98); ABG PCO2 51 mmHg (35-45); ABG PH 7.33 pH Units (7.32-7.45); ABG PO2 68 mmHg (85-104); ABG TCO2 29 mEq/L (20-26); Blood Gas VT 520 cc
[2020-07-12 04:48] LABS: Hematocrit 24.9 % (37.5-50.1); Hemoglobin 7.9 g/dL (12.9-16.9); Immature Platelets 18.3 % (1.1-6.1); Mean Corpuscular HGB Conc 31.7 g/dL (31.6-35.5); Mean Corpuscular Hemoglobin 29.8 pg (28.0-33.3); Red Blood Count 2.65 M/mcL (4.19-5.50); Red Cell Distribution Width 15.7 % (11.5-14.5); White Blood Count 19.9 K/mcL (4.3-11.1)
[2020-07-12 04:50] LABS: ABG Ionized Calcium 1.09 mmol/L (1.15-1.35)
[2020-07-12 05:09] LABS: BUN/Creatinine Ratio 21 (6-26); Blood Urea Nitrogen 27 mg/dL (8-23); Calcium 7.2 mg/dL (8.6-10.3); Carbon Dioxide 24 mEq/L (23-29); Chloride 105 mEq/L (98-107); Glucose 203 mg/dL (70-105); Magnesium 2.2 mg/dL (1.6-2.6); Osmolality,Calculated 293 (280-300); Phosphorous < 1.0 mg/dL (2.7-4.5); Potassium 4.2 mEq/L (3.5-5.1); Sodium 136 mEq/L (136-145); eGFR For African Americans > 60 (> 60); eGFR For Non-African Americans 54 (> 60)
[2020-07-12 05:10] LABS: Platelet Count 98 K/mcL (140-400)
[2020-07-12 05:26] LABS: Anisocytosis 1+ (Not Present); Lymphocytes # 0.8 K/mcL (0.6-4.6); Neutrophils # 18.7 K/mcL (1.6-8.9); Platelet Estimate Slight Decrease (Normal); Toxic Granulation Present (Not Present)
[2020-07-12] MEDS: *HR* Heparin 5,000 UNIT/ML VIAL SQ SCH ×2 (06:05→17:21)
[2020-07-12] MEDS: MethylPREDNISolone 40 MG/ML VIAL IVP SCH ×2 (06:06→17:20)
[2020-07-12] MEDS: Midazolam HCl 50 MG/100 ML IV.SOLN IVC SCH (06:06)
[2020-07-12] MEDS: Phenylephrine 50 MG in 0.9 % Sodium Chloride 250 ML IVC SCH (07:41)
[2020-07-12] MEDS: Dexmedetomidine HCl 400 MCG/100 ML MLS IVC SCH (07:41)
[2020-07-12] MEDS: Fluconazole 400 MG/200 ML 400 MG/200 ML BAG IVPB SCH ×2 (07:48→20:06)
[2020-07-12] MEDS: QUEtiapine Fumarate 25 MG TABLET GTUBE SCH ×2 (07:48→20:07)
[2020-07-12] MEDS: Levothyroxine Sodium 100 MCG VIAL IVP SCH (07:48)
[2020-07-12] MEDS: Pantoprazole 40 MG VIAL IVP SCH (07:48)
[2020-07-12] MEDS: Chlorhexidine Rinse 15 ML MOUTHWASH MM SCH ×2 (07:48→20:06)
[2020-07-12] MEDS ORDERED: *HR* Heparin 5,000 UNIT/ML VIAL ONE (08:40)
[2020-07-12] MEDS: Vasopressin 40 UNIT in D5% in Water 100 ML IVC SCH (10:49)
[2020-07-12 11:58] LABS: Acinetobacter baumannii by PCR Not Detected (Not Detect); Candida albicans by PCR Not Detected (Not Detect); Candida glabrata by PCR Not Detected (Not Detect); Candida krusei by PCR Not Detected (Not Detect); Candida parapsilosis by PCR Not Detected (Not Detect); Candida tropicalis by PCR Not Detected (Not Detect); Enterobacter cloacae Cmplx PCR Not Detected (Not Detect); Enterobacteriaceae by PCR Not Detected (Not Detect); Enterococcus by PCR Not Detected (Not Detect); Escherichia coli by PCR DETECTED (Not Detect); Klebsiella oxytoca by PCR Not Detected (Not Detect); Klebsiella pneumoniae by PCR Not Detected (Not Detect); Proteus by PCR Not Detected (Not Detect); Pseudomonas aeruginosa by PCR Not Detected (Not Detect); Serratia marcescens by PCR Not Detected (Not Detect); Staphylococcus aureus by PCR Not Detected (Not Detect); Staphylococcus by PCR Not Detected (Not Detect); Streptococcus agalactiae(B)PCR Not Detected (Not Detect); Streptococcus by PCR Not Detected (Not Detect); Streptococcus pneumoniae PCR Not Detected (Not Detect); Streptococcus pyogenes (A) PCR Not Detected (Not Detect); blaKPC Carbapenem-Resist Gene Not Detected (Not Detect); mecA Methicillin-Resist Gene Not Detected (Not Detect); vanA/B Vancomycin-Resist Genes Not Detected (Not Detect)
[2020-07-12] MEDS ORDERED: Clinimix E 5%-15% SOLUTION 2,000 ML with MVI, adult with vitamin K 10 ML IVC SCH (17:00)
[2020-07-13] MEDS: Piperacillin/Tazobactam 3.375 GM in 0.9 % Sodium Chloride Mini Bag 100 ML IVPB SCH ×3 (01:09→17:06)
[2020-07-13] MEDS: Ipratropium/Albuterol Neb 3 ML IH SCH ×6 (03:41→23:33)
[2020-07-13 04:08] LABS: ABG Ionized Calcium 1.01 mmol/L (1.15-1.35)
[2020-07-13 04:10] LABS: Hematocrit 27.2 % (37.5-50.1); Hemoglobin 8.5 g/dL (12.9-16.9); Mean Corpuscular HGB Conc 31.3 g/dL (31.6-35.5); Mean Corpuscular Hemoglobin 27.8 pg (28.0-33.3); Mean Corpuscular Volume 88.9 fL (83.0-100.0); Mean Platelet Volume 11.8 fL (9.4-12.4); Nucleated Red Blood Cells 0.7 /100 WBC (0); Platelet Count 100 K/mcL (140-400); Red Blood Count 3.06 M/mcL (4.19-5.50); Red Cell Distribution Width 16.7 % (11.5-14.5); White Blood Count 17.5 K/mcL (4.3-11.1)
[2020-07-13] MEDS: PrismaSATE BGK 4/2.5 5,000 ML CRRT SCH ×6 (04:15→15:00)
[2020-07-13 04:17] LABS: ABG Base Excess 0 mEq/L (-2 to 3); ABG HCO3 25 mEq/L (21-27); ABG Oxygen Saturation 94 % (95-98); ABG PCO2 39 mmHg (35-45); ABG PH 7.41 pH Units (7.32-7.45); ABG PO2 72 mmHg (85-104); ABG TCO2 26 mEq/L (20-26); Blood Gas VT 520 cc
[2020-07-13] MEDS: Vasopressin 40 UNIT in D5% in Water 100 ML IVC SCH (04:18)
[2020-07-13] MEDS: Midazolam HCl 50 MG/100 ML IV.SOLN IVC SCH (04:18)
[2020-07-13] MEDS: Insulin LISPRO 300 UNITS/3 ML VIAL SQ SCH ×6 (04:19→23:22)
[2020-07-13] MEDS: Artificial Tears SOLN 15 ML BOTTLE BOTH EYES SCH ×6 (04:19→23:20)
[2020-07-13 04:26] LABS: BUN/Creatinine Ratio 23 (6-26); Blood Urea Nitrogen 27 mg/dL (8-23); Calcium 7.1 mg/dL (8.6-10.3); Carbon Dioxide 23 mEq/L (23-29); Chloride 103 mEq/L (98-107); Glucose 204 mg/dL (70-105); Magnesium 2.3 mg/dL (1.6-2.6); Osmolality,Calculated 293 (280-300); Phosphorous 3.1 mg/dL (2.7-4.5); Potassium 4.6 mEq/L (3.5-5.1); Sodium 136 mEq/L (136-145); eGFR For African Americans > 60 (> 60); eGFR For Non-African Americans > 60 (> 60)
[2020-07-13] MEDS: Norepinephrine 16 MG in 0.9 % Sodium Chloride 500 ML IVC SCH (04:26)
[2020-07-13] MEDS: Phenylephrine 50 MG in 0.9 % Sodium Chloride 250 ML IVC SCH (04:29)
[2020-07-13] MEDS: Dexmedetomidine HCl 400 MCG/100 ML MLS IVC SCH (04:29)
[2020-07-13] MEDS: Calcium Gluconate 1gm/50mL 1 GM/50 ML BAG IVPB PRN (04:33)
[2020-07-13] MEDS: MethylPREDNISolone 40 MG/ML VIAL IVP SCH ×2 (05:07→17:06)
[2020-07-13] MEDS: *HR* Heparin 5,000 UNIT/ML VIAL SQ SCH ×2 (05:08→17:09)
[2020-07-13 06:02] LABS: Anisocytosis 1+ (Not Present); Lymphocytes # 1.1 K/mcL (0.6-4.6); Neutrophils # 16.5 K/mcL (1.6-8.9); Platelet Estimate Slight Decrease (Normal)
[2020-07-13] MEDS: FentaNYL (PF) 1,000 MCG/100 ML IV.SOLN IVC SCH ×3 (06:05→19:12)
[2020-07-13] MEDS ORDERED: 0.9 % Sodium Chloride 250 ML ONE (07:57)
[2020-07-13] MEDS ORDERED: Vancomycin 1,000 MG VIAL ONE (07:57)
[2020-07-13] MEDS: Chlorhexidine Rinse 15 ML MOUTHWASH MM SCH ×2 (08:14→20:00)
[2020-07-13] MEDS: QUEtiapine Fumarate 25 MG TABLET GTUBE SCH ×2 (08:14→20:01)
[2020-07-13] MEDS: Pantoprazole 40 MG VIAL IVP SCH (08:15)
[2020-07-13] MEDS: Fluconazole 400 MG/200 ML 400 MG/200 ML BAG IVPB SCH ×2 (08:15→20:01)
[2020-07-13] MEDS ORDERED: Vancomycin 1,250 MG/262.5 ML IV.SOLN IVPB ONE (10:30)
[2020-07-13] MEDS ORDERED: Calcium Chloride 2,000 MG in 0.9 % Sodium Chloride 100 ML IVPB ONE (10:30)
[2020-07-13 13:47] LABS: VBG Ionized Calcium 1.27 mmol/L (1.15-1.35)
[2020-07-13 13:58] LABS: BUN/Creatinine Ratio 22 (6-26); Blood Urea Nitrogen 27 mg/dL (8-23); Calcium 8.6 mg/dL (8.6-10.3); Carbon Dioxide 27 mEq/L (23-29); Chloride 104 mEq/L (98-107); Glucose 136 mg/dL (70-105); Osmolality,Calculated 291 (280-300); Potassium 4.8 mEq/L (3.5-5.1); Sodium 137 mEq/L (136-145); eGFR For African Americans > 60 (> 60); eGFR For Non-African Americans 57 (> 60)
[2020-07-13] MEDS: *HR* Heparin 5,000 UNIT/ML VIAL CRRT PRN (16:00)
[2020-07-13] MEDS ORDERED: Clinimix E 5%-15% SOLUTION 2,000 ML with MVI, adult with vitamin K 10 ML IVC SCH (17:00)
[2020-07-13] MEDS: Metoclopramide 10 MG/2 ML VIAL IVP SCH ×2 (17:06→23:20)
[2020-07-14] MEDS: FentaNYL (PF) 1,000 MCG/100 ML IV.SOLN IVC SCH ×4 (01:47→23:43)
[2020-07-14] MEDS: Artificial Tears SOLN 15 ML BOTTLE BOTH EYES SCH ×6 (03:33→23:42)
[2020-07-14] MEDS: Midazolam HCl 50 MG/100 ML IV.SOLN IVC SCH (03:33)
[2020-07-14] MEDS: Insulin LISPRO 300 UNITS/3 ML VIAL SQ SCH ×6 (03:33→23:42)
[2020-07-14] MEDS: Dexmedetomidine HCl 400 MCG/100 ML MLS IVC SCH (03:33)
[2020-07-14] MEDS: Ipratropium/Albuterol Neb 3 ML IH SCH ×6 (03:39→23:27)
[2020-07-14 03:42] LABS: ABG Ionized Calcium 1.13 mmol/L (1.15-1.35)
[2020-07-14 03:43] LABS: Hemoglobin 8.5 g/dL (12.9-16.9); Mean Corpuscular Hemoglobin 28.1 pg (28.0-33.3); Nucleated Red Blood Cells 0.5 /100 WBC (0); Red Blood Count 3.02 M/mcL (4.19-5.50)
[2020-07-14 03:45] LABS: Hematocrit 27.5 % (37.5-50.1); Immature Platelets 18.2 % (1.1-6.1); Mean Corpuscular HGB Conc 30.9 g/dL (31.6-35.5); Mean Corpuscular Volume 91.1 fL (83.0-100.0); Mean Platelet Volume 13.7 fL (9.4-12.4); Platelet Count 122 K/mcL (140-400); Red Cell Distribution Width 16.1 % (11.5-14.5); White Blood Count 18.3 K/mcL (4.3-11.1)
[2020-07-14 03:47] LABS: ABG Base Excess -1 mEq/L (-2 to 3); ABG HCO3 23 mEq/L (21-27); ABG Oxygen Saturation 96 % (95-98); ABG PCO2 36 mmHg (35-45); ABG PH 7.42 pH Units (7.32-7.45); ABG PO2 83 mmHg (85-104); ABG TCO2 24 mEq/L (20-26); Blood Gas Modality ASSIST CONTROL; Blood Gas VT 520 cc
[2020-07-14 03:56] LABS: Magnesium 2.3 mg/dL (1.6-2.6); Phosphorous 3.2 mg/dL (2.7-4.5)
[2020-07-14 03:58] LABS: Calcium 7.3 mg/dL (8.6-10.3); Potassium 4.6 mEq/L (3.5-5.1)
[2020-07-14] MEDS: Metoclopramide 10 MG/2 ML VIAL IVP SCH ×4 (05:11→23:38)
[2020-07-14] MEDS: MethylPREDNISolone 40 MG/ML VIAL IVP SCH ×2 (05:11→17:23)
[2020-07-14] MEDS: *HR* Heparin 5,000 UNIT/ML VIAL SQ SCH ×2 (05:12→17:23)
[2020-07-14] MEDS: Norepinephrine 16 MG in 0.9 % Sodium Chloride 500 ML IVC SCH (05:12)
[2020-07-14 07:03] LABS: Anisocytosis 1+ (Not Present); Lymphocytes # 1.8 K/mcL (0.6-4.6); Macrocytosis Present (Not Present); Monocytes # 0.4 K/mcL (0.0-1.3); Neutrophils # 14.6 K/mcL (1.6-8.9)
[2020-07-14 07:04] LABS: Platelet Estimate Slight Decrease (Normal)
[2020-07-14] MEDS ORDERED: 0.9 % Sodium Chloride 250 ML ONE (07:55)
[2020-07-14] MEDS ORDERED: Vancomycin 1,000 MG VIAL ONE (07:55)
[2020-07-14] MEDS: Pantoprazole 40 MG VIAL IVP SCH (08:31)
[2020-07-14] MEDS: Chlorhexidine Rinse 15 ML MOUTHWASH MM SCH ×2 (08:31→20:11)
[2020-07-14] MEDS: Fluconazole 400 MG/200 ML 400 MG/200 ML BAG IVPB SCH (08:32)
[2020-07-14] MEDS: QUEtiapine Fumarate 25 MG TABLET GTUBE SCH ×2 (08:32→20:11)
[2020-07-14] MEDS: Piperacillin/Tazobactam 3.375 GM in 0.9 % Sodium Chloride Mini Bag 100 ML IVPB SCH ×2 (11:03→19:41)
[2020-07-14] MEDS ORDERED: Isovue-370 500 ML BOTTLE PO ONE (13:56)
[2020-07-14] MEDS ORDERED: Perflutren Lipid Microsphere 1.3 ML in 0.9 % Sodium Chloride 8.7 ML IVP PRN (16:17)
[2020-07-14] MEDS ORDERED: Clinimix E 5%-15% SOLUTION 2,000 ML with MVI, adult with vitamin K 10 ML IVC SCH (17:00)
[2020-07-15] MEDS: Ipratropium/Albuterol Neb 3 ML IH SCH ×6 (03:19→23:06)
[2020-07-15] MEDS: Insulin LISPRO 300 UNITS/3 ML VIAL SQ SCH ×6 (03:24→23:24)
[2020-07-15] MEDS: Artificial Tears SOLN 15 ML BOTTLE BOTH EYES SCH ×6 (03:24→23:23)
[2020-07-15] MEDS: Midazolam HCl 50 MG/100 ML IV.SOLN IVC SCH (03:25)
[2020-07-15] MEDS: Dexmedetomidine HCl 400 MCG/100 ML MLS IVC SCH (03:25)
[2020-07-15 03:33] LABS: Hematocrit 28.2 % (37.5-50.1); Mean Corpuscular HGB Conc 31.9 g/dL (31.6-35.5); Mean Corpuscular Hemoglobin 28.9 pg (28.0-33.3); Mean Corpuscular Volume 90.7 fL (83.0-100.0); Nucleated Red Blood Cells 0.3 /100 WBC (0); Platelet Count 145 K/mcL (140-400); Red Blood Count 3.11 M/mcL (4.19-5.50); Red Cell Distribution Width 16.4 % (11.5-14.5); White Blood Count 22.2 K/mcL (4.3-11.1)
[2020-07-15 03:34] LABS: ABG Ionized Calcium 1.09 mmol/L (1.15-1.35)
[2020-07-15 03:50] LABS: Calcium 7.5 mg/dL (8.6-10.3); Magnesium 2.4 mg/dL (1.6-2.6); Potassium 5.5 mEq/L (3.5-5.1)
[2020-07-15 03:52] LABS: Lymphocytes # 1.3 K/mcL (0.6-4.6); Monocytes # 1.8 K/mcL (0.0-1.3); Neutrophils # 17.3 K/mcL (1.6-8.9)
[2020-07-15 03:53] LABS: Anisocytosis 1+ (Not Present); Macrocytosis Present (Not Present); Platelet Estimate Normal (Normal)
[2020-07-15 04:00] LABS: ABG Base Excess -4 mEq/L (-2 to 3); ABG HCO3 21 mEq/L (21-27); ABG Oxygen Saturation 96 % (95-98); ABG PCO2 40 mmHg (35-45); ABG PH 7.33 pH Units (7.32-7.45); ABG PO2 84 mmHg (85-104); ABG TCO2 23 mEq/L (20-26); Blood Gas Modality ASSIST CONTROL; Blood Gas VT 520 cc
[2020-07-15] MEDS: MethylPREDNISolone 40 MG/ML VIAL IVP SCH ×2 (05:26→17:02)
[2020-07-15] MEDS: Piperacillin/Tazobactam 3.375 GM in 0.9 % Sodium Chloride Mini Bag 100 ML IVPB SCH ×2 (05:26→17:05)
[2020-07-15] MEDS: Metoclopramide 10 MG/2 ML VIAL IVP SCH ×4 (05:26→23:24)
[2020-07-15] MEDS: FentaNYL (PF) 2,500 MCG/50 ML IV.SOLN IVC SCH ×2 (05:26→21:40)
[2020-07-15] MEDS: *HR* Heparin 5,000 UNIT/ML VIAL SQ SCH ×2 (05:26→17:02)
[2020-07-15] MEDS ORDERED: 0.9 % Sodium Chloride 250 ML IVC PRN (07:36)
[2020-07-15] MEDS ORDERED: *HR* Heparin 10,000 UNIT/10 ML VIAL IV PRN (07:36)
[2020-07-15] MEDS ORDERED: 0.9 % Sodium Chloride 1,000 ML PRIME SCH (07:45)
[2020-07-15] MEDS ORDERED: 0.9 % Sodium Chloride 250 ML ONE (07:50)
[2020-07-15] MEDS ORDERED: Vancomycin 1,000 MG VIAL ONE (07:50)
[2020-07-15] MEDS: Chlorhexidine Rinse 15 ML MOUTHWASH MM SCH ×2 (08:35→19:55)
[2020-07-15] MEDS: QUEtiapine Fumarate 25 MG TABLET GTUBE SCH ×2 (08:37→19:55)
[2020-07-15] MEDS: Levothyroxine Sodium 100 MCG VIAL IVP SCH (08:37)
[2020-07-15] MEDS: Pantoprazole 40 MG VIAL IVP SCH (08:38)
[2020-07-15] MEDS ORDERED: 0.9 % Sodium Chloride 500 ML ONE (10:04)
[2020-07-15] MEDS ORDERED: *HR* Heparin 5,000 UNIT/ML VIAL ONE (10:21)
[2020-07-15 11:40] LABS: Hepatitis B Surface Antibody < 3.10 mIU/mL
[2020-07-15 11:51] LABS: Hepatitis B Surface Antigen Nonreactive (Nonreactive)
[2020-07-15] MEDS: Norepinephrine 16 MG in 0.9 % Sodium Chloride 500 ML IVC SCH (14:33)
[2020-07-15] MEDS: Erythromycin Susp 200 MG/5 ML UDC GTUBE SCH ×3 (14:38→23:23)
[2020-07-15] MEDS ORDERED: [UNRECOGNIZED DRUG - OTHER] IVC SCH (17:00)
[2020-07-15] MEDS ORDERED: PARENTERAL AMINO ACID 10% IVC SCH (17:00)
[2020-07-15] MEDS ORDERED: CLINIMIX IVC SCH (17:00)
[2020-07-15] MEDS ORDERED: MVI IVC SCH (17:00)
[2020-07-15] MEDS ORDERED: Fluconazole 400 MG/200 ML 400 MG/200 ML BAG IVPB SCH (18:00)
[2020-07-16] MEDS: Ipratropium/Albuterol Neb 3 ML IH SCH ×6 (03:06→23:56)
[2020-07-16] MEDS: Artificial Tears SOLN 15 ML BOTTLE BOTH EYES SCH ×6 (03:19→23:10)
[2020-07-16] MEDS: Insulin LISPRO 300 UNITS/3 ML VIAL SQ SCH ×5 (03:20→20:18)
[2020-07-16 04:18] LABS: Red Cell Distribution Width 16.2 % (11.5-14.5)
[2020-07-16 04:20] LABS: Hematocrit 28.7 % (37.5-50.1); Hemoglobin 9.1 g/dL (12.9-16.9); Immature Platelets 18.2 % (1.1-6.1); Mean Corpuscular HGB Conc 31.7 g/dL (31.6-35.5); Mean Corpuscular Hemoglobin 28.1 pg (28.0-33.3); Mean Corpuscular Volume 88.6 fL (83.0-100.0); Nucleated Red Blood Cells 0.2 /100 WBC (0); Platelet Count 181 K/mcL (140-400); Red Blood Count 3.24 M/mcL (4.19-5.50); White Blood Count 24.2 K/mcL (4.3-11.1)
[2020-07-16 04:22] LABS: ABG Base Excess 0 mEq/L (-2 to 3); ABG HCO3 25 mEq/L (21-27); ABG Oxygen Saturation 95 % (95-98); ABG PCO2 44 mmHg (35-45); ABG PH 7.37 pH Units (7.32-7.45); ABG PO2 77 mmHg (85-104); ABG TCO2 27 mEq/L (20-26); Blood Gas Modality ASSIST CONTROL; Blood Gas VT 520 cc
[2020-07-16 04:41] LABS: Calcium 7.3 mg/dL (8.6-10.3); Magnesium 2.1 mg/dL (1.6-2.6); Phosphorous 4.8 mg/dL (2.7-4.5); Potassium 4.3 mEq/L (3.5-5.1)
[2020-07-16] MEDS: Midazolam HCl 50 MG/100 ML IV.SOLN IVC SCH (04:55)
[2020-07-16 05:02] LABS: Lymphocytes # 2.9 K/mcL (0.6-4.6); Neutrophils # 20.3 K/mcL (1.6-8.9)
[2020-07-16 05:03] LABS: Anisocytosis 1+ (Not Present); Macrocytosis Present (Not Present); Platelet Estimate Normal (Normal)
[2020-07-16] MEDS: Metoclopramide 10 MG/2 ML VIAL IVP SCH ×4 (05:17→23:09)
[2020-07-16] MEDS: Piperacillin/Tazobactam 3.375 GM in 0.9 % Sodium Chloride Mini Bag 100 ML IVPB SCH ×2 (05:17→18:16)
[2020-07-16] MEDS: MethylPREDNISolone 40 MG/ML VIAL IVP SCH ×2 (05:17→18:15)
[2020-07-16] MEDS: *HR* Heparin 5,000 UNIT/ML VIAL SQ SCH ×2 (05:17→18:15)
[2020-07-16] MEDS: Erythromycin Susp 200 MG/5 ML UDC GTUBE SCH ×4 (05:18→23:10)
[2020-07-16] MEDS ORDERED: 0.9 % Sodium Chloride 250 ML ONE (07:34)
[2020-07-16] MEDS ORDERED: Vancomycin 1,000 MG VIAL ONE (07:34)
[2020-07-16] MEDS: Pantoprazole 40 MG VIAL IVP SCH (07:45)
[2020-07-16] MEDS: Chlorhexidine Rinse 15 ML MOUTHWASH MM SCH ×2 (07:45→20:17)
[2020-07-16] MEDS: QUEtiapine Fumarate 25 MG TABLET GTUBE SCH ×2 (07:45→20:17)
[2020-07-16] MEDS: Dexmedetomidine HCl 400 MCG/100 ML MLS IVC SCH (07:46)
[2020-07-16] MEDS: Norepinephrine 16 MG in 0.9 % Sodium Chloride 500 ML IVC SCH (07:53)
[2020-07-16] MEDS: PrismaSATE BGK 4/2.5 5,000 ML CRRT SCH ×2 (14:34)
[2020-07-16] MEDS: FentaNYL (PF) 2,500 MCG/50 ML IV.SOLN IVC SCH (16:07)
[2020-07-16] MEDS ORDERED: PARENTERAL AMINO ACID 10% IVC SCH (17:00)
[2020-07-16] MEDS ORDERED: MVI IVC SCH (17:00)
[2020-07-16] MEDS ORDERED: CLINIMIX IVC SCH (17:00)
[2020-07-16] MEDS ORDERED: [UNRECOGNIZED DRUG - OTHER] IVC SCH (17:00)
[2020-07-17] MEDS: Insulin LISPRO 300 UNITS/3 ML VIAL SQ SCH ×7 (00:10→23:14)
[2020-07-17] MEDS: Ipratropium/Albuterol Neb 3 ML IH SCH ×5 (03:40→19:44)
[2020-07-17 03:48] LABS: ABG Base Excess -2 mEq/L (-2 to 3); ABG HCO3 22 mEq/L (21-27); ABG Oxygen Saturation 95 % (95-98); ABG PCO2 38 mmHg (35-45); ABG PH 7.38 pH Units (7.32-7.45); ABG PO2 77 mmHg (85-104); ABG TCO2 24 mEq/L (20-26); Blood Gas VT 520 cc
[2020-07-17] MEDS: Artificial Tears SOLN 15 ML BOTTLE BOTH EYES SCH ×6 (03:48→23:14)
[2020-07-17 03:55] LABS: Basophils % 0.2 %; Hematocrit 26.4 % (37.5-50.1); Hemoglobin 8.6 g/dL (12.9-16.9); Immature Granulocytes % 4.3 % (0-4); Lymphocytes # 0.5 K/mcL (0.6-4.6); Lymphocytes % 2.2 %; Mean Corpuscular HGB Conc 32.6 g/dL (31.6-35.5); Mean Corpuscular Hemoglobin 29.1 pg (28.0-33.3); Mean Corpuscular Volume 89.2 fL (83.0-100.0); Mean Platelet Volume 12.7 fL (9.4-12.4); Monocytes # 0.7 K/mcL (0.0-1.3); Monocytes % 3.1 %; Neutrophils # 19.3 K/mcL (1.6-8.9); Nucleated Red Blood Cells 0.1 /100 WBC (0); Platelet Count 152 K/mcL (140-400); Red Blood Count 2.96 M/mcL (4.19-5.50); Red Cell Distribution Width 16.3 % (11.5-14.5); Segmented Neutrophils % 90.2 %; White Blood Count 21.4 K/mcL (4.3-11.1)
[2020-07-17] MEDS: Midazolam HCl 50 MG/100 ML IV.SOLN IVC SCH (04:09)
[2020-07-17 04:11] LABS: Calcium 7.3 mg/dL (8.6-10.3); Magnesium 2.2 mg/dL (1.6-2.6); Phosphorous 4.2 mg/dL (2.7-4.5); Potassium 4.9 mEq/L (3.5-5.1)
[2020-07-17] MEDS: Piperacillin/Tazobactam 3.375 GM in 0.9 % Sodium Chloride Mini Bag 100 ML IVPB SCH ×2 (05:08→17:06)
[2020-07-17] MEDS: *HR* Heparin 5,000 UNIT/ML VIAL SQ SCH ×2 (05:09→17:05)
[2020-07-17] MEDS: Metoclopramide 10 MG/2 ML VIAL IVP SCH ×4 (05:09→23:14)
[2020-07-17] MEDS: MethylPREDNISolone 40 MG/ML VIAL IVP SCH ×2 (05:09→17:05)
[2020-07-17] MEDS: Erythromycin Susp 200 MG/5 ML UDC GTUBE SCH ×4 (05:09→23:14)
[2020-07-17] MEDS: Dexmedetomidine HCl 400 MCG/100 ML MLS IVC SCH ×2 (05:10→10:22)
[2020-07-17] MEDS: Norepinephrine 16 MG in 0.9 % Sodium Chloride 500 ML IVC SCH (07:32)
[2020-07-17] MEDS: Chlorhexidine Rinse 15 ML MOUTHWASH MM SCH ×2 (07:43→20:35)
[2020-07-17] MEDS: Pantoprazole 40 MG VIAL IVP SCH (07:43)
[2020-07-17] MEDS: QUEtiapine Fumarate 25 MG TABLET GTUBE SCH ×2 (07:44→20:35)
[2020-07-17] MEDS ORDERED: Dexmedetomidine HCl 400 MCG/100 ML MLS IVC SCH (09:30)
[2020-07-17] MEDS ORDERED: 0.9 % Sodium Chloride 250 ML IVC PRN (09:31)
[2020-07-17] MEDS ORDERED: 0.9 % Sodium Chloride 1,000 ML PRIME SCH (09:45)
[2020-07-17] MEDS ORDERED: *HR* Heparin 10,000 UNIT/10 ML VIAL IV PRN (11:43)
[2020-07-17] MEDS ORDERED: PARENTERAL AMINO ACID 10% IVC SCH (17:00)
[2020-07-17] MEDS ORDERED: [UNRECOGNIZED DRUG - OTHER] IVC SCH (17:00)
[2020-07-17] MEDS ORDERED: CLINIMIX IVC SCH (17:00)
[2020-07-17] MEDS ORDERED: MVI IVC SCH (17:00)
[2020-07-18] MEDS: Ipratropium/Albuterol Neb 3 ML IH SCH ×7 (00:19→23:30)
[2020-07-18] MEDS: Dexmedetomidine HCl 400 MCG/100 ML MLS IVC SCH ×4 (02:05→23:38)
[2020-07-18] MEDS: FentaNYL (PF) 2,500 MCG/50 ML IV.SOLN IVC SCH (03:29)
[2020-07-18] MEDS: Artificial Tears SOLN 15 ML BOTTLE BOTH EYES SCH ×5 (03:32→21:46)
[2020-07-18] MEDS: Insulin LISPRO 300 UNITS/3 ML VIAL SQ SCH ×5 (03:32→21:47)
[2020-07-18 03:43] LABS: ABG Base Excess 3 mEq/L (-2 to 3); ABG HCO3 24 mEq/L (21-27); ABG Oxygen Saturation 98 % (95-98); ABG PCO2 29 mmHg (35-45); ABG PH 7.53 pH Units (7.32-7.45); ABG PO2 91 mmHg (85-104); ABG TCO2 25 mEq/L (20-26); Blood Gas VT 520 cc
[2020-07-18 04:05] LABS: Basophils % 0.1 %; Hematocrit 25.3 % (37.5-50.1); Hemoglobin 8.3 g/dL (12.9-16.9); Immature Granulocytes % 2.2 % (0-4); Lymphocytes # 0.3 K/mcL (0.6-4.6); Lymphocytes % 1.6 %; Mean Corpuscular HGB Conc 32.8 g/dL (31.6-35.5); Mean Corpuscular Hemoglobin 28.2 pg (28.0-33.3); Mean Corpuscular Volume 86.1 fL (83.0-100.0); Monocytes # 0.5 K/mcL (0.0-1.3); Monocytes % 2.6 %; Neutrophils # 18.6 K/mcL (1.6-8.9); Nucleated Red Blood Cells 0.2 /100 WBC (0); Platelet Count 173 K/mcL (140-400); Red Blood Count 2.94 M/mcL (4.19-5.50); Red Cell Distribution Width 15.8 % (11.5-14.5); Segmented Neutrophils % 93.5 %; White Blood Count 19.9 K/mcL (4.3-11.1)
[2020-07-18 04:30] LABS: Calcium 7.4 mg/dL (8.6-10.3); Phosphorous 2.6 mg/dL (2.7-4.5); Potassium 4.2 mEq/L (3.5-5.1)
[2020-07-18] MEDS: Midazolam HCl 50 MG/100 ML IV.SOLN IVC SCH (05:33)
[2020-07-18] MEDS: Piperacillin/Tazobactam 3.375 GM in 0.9 % Sodium Chloride Mini Bag 100 ML IVPB SCH ×2 (05:36→16:07)
[2020-07-18] MEDS: Metoclopramide 10 MG/2 ML VIAL IVP SCH ×3 (05:40→17:58)
[2020-07-18] MEDS: MethylPREDNISolone 40 MG/ML VIAL IVP SCH ×2 (05:41→17:58)
[2020-07-18] MEDS: *HR* Heparin 5,000 UNIT/ML VIAL SQ SCH ×3 (05:41→18:21)
[2020-07-18] MEDS: Erythromycin Susp 200 MG/5 ML UDC GTUBE SCH ×3 (05:42→17:58)
[2020-07-18] MEDS ORDERED: 0.9 % Sodium Chloride 250 ML ONE (07:48)
[2020-07-18] MEDS ORDERED: Vancomycin 1,000 MG VIAL ONE (07:48)
[2020-07-18] MEDS: Levothyroxine Sodium 100 MCG VIAL IVP SCH (07:53)
[2020-07-18] MEDS: Chlorhexidine Rinse 15 ML MOUTHWASH MM SCH ×2 (07:53→21:40)
[2020-07-18] MEDS: QUEtiapine Fumarate 25 MG TABLET GTUBE SCH ×2 (07:53→21:40)
[2020-07-18] MEDS: Pantoprazole 40 MG VIAL IVP SCH (07:53)
[2020-07-18] MEDS ORDERED: Isovue-370 500 ML BOTTLE IVP ONE (08:24)
[2020-07-18] MEDS ORDERED: *HR* Rocuronium Bromide 50 MG/5 ML VIAL IVP ONE (08:56)
[2020-07-18] MEDS ORDERED: PARENTERAL AMINO ACID 10% IVC SCH (17:00)
[2020-07-18] MEDS ORDERED: MVI IVC SCH (17:00)
[2020-07-18] MEDS ORDERED: [UNRECOGNIZED DRUG - OTHER] IVC SCH (17:00)
[2020-07-18] MEDS ORDERED: CLINIMIX IVC SCH (17:00)
[2020-07-18] MEDS: Norepinephrine 16 MG in 0.9 % Sodium Chloride 500 ML IVC SCH (17:53)
[2020-07-19] MEDS: Piperacillin/Tazobactam 3.375 GM in 0.9 % Sodium Chloride Mini Bag 100 ML IVPB SCH ×3 (00:45→17:25)
[2020-07-19] MEDS: Metoclopramide 10 MG/2 ML VIAL IVP SCH ×5 (01:02→23:11)
[2020-07-19] MEDS: Erythromycin Susp 200 MG/5 ML UDC GTUBE SCH ×5 (01:03→23:10)
[2020-07-19] MEDS: Artificial Tears SOLN 15 ML BOTTLE BOTH EYES SCH ×7 (01:03→23:10)
[2020-07-19] MEDS: Insulin LISPRO 300 UNITS/3 ML VIAL SQ SCH ×7 (01:09→23:11)
[2020-07-19] MEDS: Ipratropium/Albuterol Neb 3 ML IH SCH ×6 (03:23→23:08)
[2020-07-19] MEDS: FentaNYL (PF) 2,500 MCG/50 ML IV.SOLN IVC SCH ×2 (03:49→23:11)
[2020-07-19] MEDS: Midazolam HCl 50 MG/100 ML IV.SOLN IVC SCH ×2 (03:50→23:12)
[2020-07-19 04:19] LABS: Basophils % 0.2 %; Hematocrit 24.2 % (37.5-50.1); Hemoglobin 7.9 g/dL (12.9-16.9); Immature Granulocytes % 1.3 % (0-4); Lymphocytes # 0.4 K/mcL (0.6-4.6); Lymphocytes % 1.6 %; Mean Corpuscular HGB Conc 32.6 g/dL (31.6-35.5); Mean Corpuscular Hemoglobin 28.3 pg (28.0-33.3); Mean Corpuscular Volume 86.7 fL (83.0-100.0); Monocytes # 0.6 K/mcL (0.0-1.3); Monocytes % 2.6 %; Neutrophils # 21.9 K/mcL (1.6-8.9); Platelet Count 172 K/mcL (140-400); Red Blood Count 2.79 M/mcL (4.19-5.50); Red Cell Distribution Width 16.5 % (11.5-14.5); Segmented Neutrophils % 94.3 %; White Blood Count 23.2 K/mcL (4.3-11.1)
[2020-07-19 04:26] LABS: Basophils # 0.1 K/mcL (0.0-0.2)
[2020-07-19 04:27] LABS: ABG Ionized Calcium 1.03 mmol/L (1.15-1.35)
[2020-07-19 04:39] LABS: Calcium 7.6 mg/dL (8.6-10.3); Magnesium 2.3 mg/dL (1.6-2.6); Phosphorous 3.8 mg/dL (2.7-4.5); Potassium 5.1 mEq/L (3.5-5.1)
[2020-07-19 05:08] LABS: Platelet Estimate Normal (Normal)
[2020-07-19 05:39] LABS: ABG Base Excess -2 mEq/L (-2 to 3); ABG HCO3 22 mEq/L (21-27); ABG Oxygen Saturation 99 % (95-98); ABG PCO2 30 mmHg (35-45); ABG PH 7.47 pH Units (7.32-7.45); ABG PO2 107 mmHg (85-104); ABG TCO2 23 mEq/L (20-26); Blood Gas Modality AF; Blood Gas VT 520 cc
[2020-07-19] MEDS: Norepinephrine 16 MG in 0.9 % Sodium Chloride 500 ML IVC SCH (06:03)
[2020-07-19] MEDS: MethylPREDNISolone 40 MG/ML VIAL IVP SCH (06:03)
[2020-07-19] MEDS: *HR* Heparin 5,000 UNIT/ML VIAL SQ SCH ×2 (06:04→17:22)
[2020-07-19] MEDS: Dexmedetomidine HCl 400 MCG/100 ML MLS IVC SCH (06:12)
[2020-07-19] MEDS ORDERED: 0.9 % Sodium Chloride 250 ML IVC PRN (07:31)
[2020-07-19] MEDS ORDERED: 0.9 % Sodium Chloride 1,000 ML PRIME SCH (07:45)
[2020-07-19] MEDS: Chlorhexidine Rinse 15 ML MOUTHWASH MM SCH ×2 (08:02→19:34)
[2020-07-19] MEDS: Pantoprazole 40 MG VIAL IVP SCH (08:02)
[2020-07-19] MEDS: QUEtiapine Fumarate 25 MG TABLET GTUBE SCH ×2 (08:02→19:36)
[2020-07-19] MEDS ORDERED: PARENTERAL AMINO ACID 10% IVC SCH (17:00)
[2020-07-19] MEDS ORDERED: CLINIMIX E IVC SCH (17:00)
[2020-07-19] MEDS ORDERED: MVI IVC SCH (17:00)
[2020-07-19] MEDS ORDERED: [UNRECOGNIZED DRUG - OTHER] IVC SCH (17:00)
[2020-07-20] MEDS: Artificial Tears SOLN 15 ML BOTTLE BOTH EYES SCH ×6 (03:06→23:27)
[2020-07-20] MEDS: Ipratropium/Albuterol Neb 3 ML IH SCH ×6 (03:25→23:24)
[2020-07-20] MEDS: Insulin LISPRO 300 UNITS/3 ML VIAL SQ SCH ×6 (03:29→23:27)
[2020-07-20] MEDS: Norepinephrine 16 MG in 0.9 % Sodium Chloride 500 ML IVC SCH (03:32)
[2020-07-20 03:49] LABS: Basophils % 0.1 %; Mean Corpuscular HGB Conc 32.8 g/dL (31.6-35.5); Mean Corpuscular Hemoglobin 28.9 pg (28.0-33.3)
[2020-07-20 03:50] LABS: Eosinophils # 0.1 K/mcL (0.0-0.6); Eosinophils % 0.3 %; Hematocrit 23.5 % (37.5-50.1); Hemoglobin 7.7 g/dL (12.9-16.9); Lymphocytes # 0.4 K/mcL (0.6-4.6); Lymphocytes % 1.6 %; Mean Corpuscular Volume 88.3 fL (83.0-100.0); Mean Platelet Volume 11.6 fL (9.4-12.4); Monocytes # 0.8 K/mcL (0.0-1.3); Monocytes % 2.8 %; Neutrophils # 25.6 K/mcL (1.6-8.9); Platelet Count 210 K/mcL (140-400); Red Blood Count 2.66 M/mcL (4.19-5.50); Segmented Neutrophils % 94.2 %; White Blood Count 27.2 K/mcL (4.3-11.1)
[2020-07-20 04:00] LABS: ABG Ionized Calcium 1.04 mmol/L (1.15-1.35)
[2020-07-20 04:09] LABS: Calcium 7.6 mg/dL (8.6-10.3); Magnesium 2.4 mg/dL (1.6-2.6); Phosphorous 4.1 mg/dL (2.7-4.5); Potassium 5.1 mEq/L (3.5-5.1)
[2020-07-20] MEDS: Piperacillin/Tazobactam 3.375 GM in 0.9 % Sodium Chloride Mini Bag 100 ML IVPB SCH ×2 (05:02→17:16)
[2020-07-20] MEDS: Metoclopramide 10 MG/2 ML VIAL IVP SCH ×4 (05:02→23:26)
[2020-07-20] MEDS: *HR* Heparin 5,000 UNIT/ML VIAL SQ SCH ×2 (05:02→17:18)
[2020-07-20] MEDS: Erythromycin Susp 200 MG/5 ML UDC GTUBE SCH ×4 (05:03→23:26)
[2020-07-20] MEDS ORDERED: 0.9 % Sodium Chloride 250 ML IVC PRN (07:10)
[2020-07-20] MEDS ORDERED: *HR* Heparin 10,000 UNIT/10 ML VIAL IV PRN (07:13)
[2020-07-20] MEDS: Chlorhexidine Rinse 15 ML MOUTHWASH MM SCH ×2 (08:30→19:55)
[2020-07-20] MEDS: Pantoprazole 40 MG VIAL IVP SCH (08:30)
[2020-07-20] MEDS: MethylPREDNISolone 40 MG/ML VIAL IVP SCH (08:31)
[2020-07-20] MEDS: QUEtiapine Fumarate 25 MG TABLET GTUBE SCH ×2 (08:31→19:55)
[2020-07-20] MEDS ORDERED: Isovue-370 500 ML BOTTLE IVP ONE (10:35)
[2020-07-20] MEDS ORDERED: [UNRECOGNIZED DRUG - OTHER] IVC SCH (17:00)
[2020-07-20] MEDS ORDERED: PARENTERAL AMINO ACID 10% IVC SCH (17:00)
[2020-07-20] MEDS ORDERED: MVI IVC SCH (17:00)
[2020-07-20] MEDS ORDERED: CLINIMIX E IVC SCH (17:00)
[2020-07-20 17:01] LABS: ABG Base Excess 0 mEq/L (-2 to 3); ABG HCO3 24 mEq/L (21-27); ABG Oxygen Saturation 93 % (95-98); ABG PCO2 32 mmHg (35-45); ABG PH 7.47 pH Units (7.32-7.45); ABG PO2 63 mmHg (85-104); ABG TCO2 25 mEq/L (20-26)
[2020-07-20 23:07] LABS: ABG Base Excess -1 mEq/L (-2 to 3); ABG HCO3 22 mEq/L (21-27); ABG Oxygen Saturation 88 % (95-98); ABG PCO2 31 mmHg (35-45); ABG PH 7.47 pH Units (7.32-7.45); ABG PO2 51 mmHg (85-104); ABG TCO2 23 mEq/L (20-26)
[2020-07-21] MEDS: FentaNYL (PF) 2,500 MCG/50 ML IV.SOLN IVC SCH ×2 (02:20→23:28)
[2020-07-21 03:36] LABS: Hematocrit 20.7 % (37.5-50.1); Hemoglobin 6.9 g/dL (12.9-16.9); Mean Corpuscular HGB Conc 33.3 g/dL (31.6-35.5); Mean Corpuscular Hemoglobin 28.6 pg (28.0-33.3); Mean Corpuscular Volume 85.9 fL (83.0-100.0); Mean Platelet Volume 11.9 fL (9.4-12.4); Platelet Count 174 K/mcL (140-400); Red Blood Count 2.41 M/mcL (4.19-5.50); Red Cell Distribution Width 17.1 % (11.5-14.5); White Blood Count 22.9 K/mcL (4.3-11.1)
[2020-07-21] MEDS: Ipratropium/Albuterol Neb 3 ML IH SCH ×6 (03:41→23:39)
[2020-07-21] MEDS: Insulin LISPRO 300 UNITS/3 ML VIAL SQ SCH ×6 (03:47→23:28)
[2020-07-21] MEDS: Artificial Tears SOLN 15 ML BOTTLE BOTH EYES SCH ×6 (03:48→23:28)
[2020-07-21 03:56] LABS: Calcium 7.6 mg/dL (8.6-10.3); Magnesium 2.2 mg/dL (1.6-2.6); Potassium 4.7 mEq/L (3.5-5.1)
[2020-07-21] MEDS: Dexmedetomidine HCl 400 MCG/100 ML MLS IVC SCH ×2 (05:10→23:28)
[2020-07-21 05:18] LABS: ABG Base Excess -1 mEq/L (-2 to 3); ABG HCO3 23 mEq/L (21-27); ABG Oxygen Saturation 90 % (95-98); ABG PCO2 32 mmHg (35-45); ABG PH 7.47 pH Units (7.32-7.45); ABG PO2 55 mmHg (85-104); ABG TCO2 24 mEq/L (20-26)
[2020-07-21] MEDS: Erythromycin Susp 200 MG/5 ML UDC GTUBE SCH (05:21)
[2020-07-21] MEDS: Piperacillin/Tazobactam 3.375 GM in 0.9 % Sodium Chloride Mini Bag 100 ML IVPB SCH ×2 (05:21→17:21)
[2020-07-21] MEDS: *HR* Heparin 5,000 UNIT/ML VIAL SQ SCH ×2 (05:21→17:37)
[2020-07-21] MEDS: Metoclopramide 10 MG/2 ML VIAL IVP SCH (05:21)
[2020-07-21] MEDS ORDERED: 0.9 % Sodium Chloride 250 ML IVC PRN (08:32)
[2020-07-21] MEDS ORDERED: *HR* Heparin 10,000 UNIT/10 ML VIAL IV PRN (08:43)
[2020-07-21] MEDS ORDERED: Lidocaine Viscous Oral Soln 15 ML SOLUTION ONE (08:44)
[2020-07-21] MEDS ORDERED: 0.9 % Sodium Chloride 1,000 ML PRIME SCH (08:45)
[2020-07-21] MEDS ORDERED: 0.9 % Sodium Chloride 250 ML ONE (09:22)
[2020-07-21] MEDS ORDERED: Vancomycin 1,000 MG VIAL ONE (09:22)
[2020-07-21] MEDS: Chlorhexidine Rinse 15 ML MOUTHWASH MM SCH ×2 (09:27→20:29)
[2020-07-21] MEDS: MethylPREDNISolone 40 MG/ML VIAL IVP SCH (09:27)
[2020-07-21] MEDS: Levothyroxine Sodium 100 MCG VIAL IVP SCH (09:28)
[2020-07-21] MEDS: QUEtiapine Fumarate 25 MG TABLET GTUBE SCH ×2 (09:29→20:29)
[2020-07-21] MEDS: Pantoprazole 40 MG VIAL IVP SCH (09:29)
[2020-07-21 10:37] LABS: Adenovirus Not Detected (Not Detect); Bordetella Pertussis Not Detected (Not Detect); Chlamydophila pneumoniae Not Detected (Not Detect); Coronavirus 229E Not Detected (Not Detect); Coronavirus HKU1 Not Detected (Not Detect); Coronavirus NL63 Not Detected (Not Detect); Coronavirus OC43 Not Detected (Not Detect); Human Metapneumovirus Not Detected (Not Detect); Human Rhinovirus/Enterovirus Not Detected (Not Detect); Influenza A Subtype 2009 H1 Not Detected (Not Detect); Influenza B Not Detected (Not Detect); Mycoplasma pneumoniae Not Detected (Not Detect); Parainfluenza Virus 1 Not Detected (Not Detect); Parainfluenza Virus 2 Not Detected (Not Detect); Parainfluenza Virus 3 Not Detected (Not Detect); Parainfluenza Virus 4 Not Detected (Not Detect); Respiratory Syncytial Virus Not Detected (Not Detect); SARS-CoV-2 Not Detected (Not Detect)
[2020-07-21] MEDS ORDERED: Calcium Gluconate 1gm/50mL 1 GM/50 ML BAG IVPB PRN (11:00)
[2020-07-21] MEDS: Insulin DETEMIR 100 UNIT/ML X5UNITS SQ SCH ×2 (12:28→20:29)
[2020-07-21] MEDS ORDERED: Lidocaine Viscous Oral Soln 15 ML SOLUTION MM ONE (13:03)
[2020-07-21] MEDS ORDERED: Clinimix E 5%-15% SOLUTION 2,000 ML, Parenteral Amino Acid 10% 150 ML with MVI, adult ... IVC SCH (17:00)
[2020-07-21] MEDS: Doxycycline 100 MG in 0.9 % Sodium Chloride Mini Bag 100 ML IVPB SCH (17:21)
[2020-07-22 03:27] LABS: VBG Ionized Calcium 1.12 mmol/L (1.15-1.35)
[2020-07-22] MEDS: Ipratropium/Albuterol Neb 3 ML IH SCH ×6 (03:28→23:43)
[2020-07-22 03:31] LABS: Basophils % 0.1 %; Eosinophils % 0.2 %; Hemoglobin 7.6 g/dL (12.9-16.9); Immature Granulocytes % 0.8 % (0-4); Lymphocytes # 0.3 K/mcL (0.6-4.6); Lymphocytes % 1.3 %; Mean Corpuscular Hemoglobin 29.2 pg (28.0-33.3); Mean Corpuscular Volume 88.5 fL (83.0-100.0); Mean Platelet Volume 11.8 fL (9.4-12.4); Monocytes # 0.4 K/mcL (0.0-1.3); Monocytes % 1.9 %; Neutrophils # 20.1 K/mcL (1.6-8.9); Platelet Count 151 K/mcL (140-400); Red Cell Distribution Width 16.3 % (11.5-14.5); Segmented Neutrophils % 95.7 %
[2020-07-22 03:42] LABS: Calcium 7.4 mg/dL (8.6-10.3); Magnesium 2.3 mg/dL (1.6-2.6); Phosphorous 6.4 mg/dL (2.7-4.5); Potassium 5.3 mEq/L (3.5-5.1)
[2020-07-22] MEDS: Artificial Tears SOLN 15 ML BOTTLE BOTH EYES SCH ×7 (03:42→23:39)
[2020-07-22] MEDS: Insulin LISPRO 300 UNITS/3 ML VIAL SQ SCH ×6 (03:43→23:37)
[2020-07-22] MEDS: Doxycycline 100 MG in 0.9 % Sodium Chloride Mini Bag 100 ML IVPB SCH ×2 (06:14→18:17)
[2020-07-22] MEDS: *HR* Heparin 5,000 UNIT/ML VIAL SQ SCH ×2 (06:14→18:19)
[2020-07-22] MEDS: Piperacillin/Tazobactam 3.375 GM in 0.9 % Sodium Chloride Mini Bag 100 ML IVPB SCH ×2 (06:15→18:19)
[2020-07-22] MEDS ORDERED: 0.9 % Sodium Chloride 250 ML IVC PRN (07:15)
[2020-07-22] MEDS: QUEtiapine Fumarate 25 MG TABLET GTUBE SCH ×2 (08:47→20:36)
[2020-07-22] MEDS: Chlorhexidine Rinse 15 ML MOUTHWASH MM SCH ×3 (08:47→22:46)
[2020-07-22] MEDS: Pantoprazole 40 MG VIAL IVP SCH (08:48)
[2020-07-22] MEDS: MethylPREDNISolone 40 MG/ML VIAL IVP SCH (08:48)
[2020-07-22] MEDS ORDERED: *HR* Heparin 10,000 UNIT/10 ML VIAL IV PRN (09:00)
[2020-07-22] MEDS ORDERED: Aspirin 81 MG TAB.CHEW PO SCH (09:00)
[2020-07-22] MEDS ORDERED: Albumin 25% 25gram/100mL 25 GM/100 ML IV.SOLN ONE (09:02)
[2020-07-22] MEDS: Albumin 25% 25gram/100mL 25 GM/100 ML IV.SOLN IVPB PRN (09:15)
[2020-07-22 09:28] LABS: ABG Base Excess 0 mEq/L (-2 to 3); ABG HCO3 24 mEq/L (21-27); ABG Oxygen Saturation 94 % (95-98); ABG PCO2 35 mmHg (35-45); ABG PH 7.44 pH Units (7.32-7.45); ABG PO2 66 mmHg (85-104); ABG TCO2 25 mEq/L (20-26)
[2020-07-22] MEDS: Insulin DETEMIR 100 UNIT/ML X5UNITS SQ SCH ×2 (10:34→20:38)
[2020-07-22] MEDS ORDERED: Calcium Chloride 1,000 MG in 0.9 % Sodium Chloride 100 ML IVPB ONE (11:14)
[2020-07-22 20:45] LABS: ABG Base Excess -1 mEq/L (-2 to 3); ABG HCO3 25 mEq/L (21-27); ABG Oxygen Saturation 90 % (95-98); ABG PCO2 46 mmHg (35-45); ABG PH 7.35 pH Units (7.32-7.45); ABG PO2 62 mmHg (85-104); ABG TCO2 27 mEq/L (20-26); Blood Gas VT 520 cc
[2020-07-22] MEDS: Norepinephrine 4 MG/254 ML IV.SOLN IVC SCH (21:28)
[2020-07-22] MEDS ORDERED: Artificial Tears SOLN 15 ML BOTTLE BOTH EYES PRN (21:33)
[2020-07-22] MEDS: FentaNYL (PF) 1,000 MCG/100 ML IV.SOLN IVC SCH (21:36)
[2020-07-22] MEDS: Pantoprazole 40 MG in 0.9 % Sodium Chloride Mini Bag 100 ML IVC SCH (21:39)
[2020-07-22 21:52] LABS: Basophils % 0.1 %; Eosinophils % 0.1 %; Hemoglobin 6.9 g/dL (12.9-16.9); Red Cell Distribution Width 16.4 % (11.5-14.5)
[2020-07-22 21:54] LABS: Hematocrit 21.4 % (37.5-50.1); Immature Granulocytes % 1.3 % (0-4); Immature Platelets 11.8 % (1.1-6.1); Lymphocytes # 0.1 K/mcL (0.6-4.6); Lymphocytes % 0.7 %; Mean Corpuscular HGB Conc 32.2 g/dL (31.6-35.5); Mean Corpuscular Hemoglobin 28.8 pg (28.0-33.3); Mean Corpuscular Volume 89.2 fL (83.0-100.0); Mean Platelet Volume 12.1 fL (9.4-12.4); Monocytes # 0.3 K/mcL (0.0-1.3); Monocytes % 1.4 %; Platelet Count 121 K/mcL (140-400); Segmented Neutrophils % 96.4 %
[2020-07-22 21:59] LABS: Neutrophils # 17.4 K/mcL (1.6-8.9)
[2020-07-22 22:25] LABS: Burr Cells 1+ (Not Present); Large Platelets Present (Not Present)
[2020-07-22] MEDS ORDERED: 0.9 % Sodium Chloride 250 ML IVC SCH (22:45)
[2020-07-22] MEDS: *HR* Dextrose 50 % in Water (Vial) 50 ML VIAL IVP PRN (23:36)
[2020-07-23] MEDS: Pantoprazole 40 MG in 0.9 % Sodium Chloride Mini Bag 100 ML IVC SCH ×5 (01:47→23:31)
[2020-07-23] MEDS: Artificial Tears SOLN 15 ML BOTTLE BOTH EYES SCH ×7 (01:48→20:07)
[2020-07-23] MEDS: Insulin LISPRO 300 UNITS/3 ML VIAL SQ SCH ×5 (03:13→20:07)
[2020-07-23] MEDS: *HR* Dextrose 50 % in Water (Vial) 50 ML VIAL IVP PRN ×4 (03:16→12:24)
[2020-07-23] MEDS: Dexmedetomidine HCl 400 MCG/100 ML MLS IVC SCH ×4 (03:17→23:32)
[2020-07-23 03:56] LABS: VBG Ionized Calcium 1.07 mmol/L (1.15-1.35)
[2020-07-23 04:00] LABS: Basophils % 0.1 %; Red Cell Distribution Width 15.6 % (11.5-14.5)
[2020-07-23 04:01] LABS: Eosinophils % 0.1 %; Hematocrit 23.6 % (37.5-50.1); Hemoglobin 7.6 g/dL (12.9-16.9); Immature Granulocytes % 0.7 % (0-4); Immature Platelets 11.3 % (1.1-6.1); Lymphocytes # 0.2 K/mcL (0.6-4.6); Lymphocytes % 1.5 %; Mean Corpuscular HGB Conc 32.2 g/dL (31.6-35.5); Mean Corpuscular Hemoglobin 28.7 pg (28.0-33.3); Mean Corpuscular Volume 89.1 fL (83.0-100.0); Mean Platelet Volume 11.8 fL (9.4-12.4); Monocytes # 0.2 K/mcL (0.0-1.3); Monocytes % 1.4 %; Neutrophils # 14.9 K/mcL (1.6-8.9); Nucleated Red Blood Cells 0.1 /100 WBC (0); Platelet Count 113 K/mcL (140-400); Red Blood Count 2.65 M/mcL (4.19-5.50); Segmented Neutrophils % 96.2 %; White Blood Count 15.5 K/mcL (4.3-11.1)
[2020-07-23] MEDS: Ipratropium/Albuterol Neb 3 ML IH SCH ×6 (04:04→23:41)
[2020-07-23 04:21] LABS: Calcium 7.9 mg/dL (8.6-10.3); Potassium 4.5 mEq/L (3.5-5.1)
[2020-07-23] MEDS: Piperacillin/Tazobactam 3.375 GM in 0.9 % Sodium Chloride Mini Bag 100 ML IVPB SCH ×2 (04:57→18:15)
[2020-07-23] MEDS: *HR* Heparin 5,000 UNIT/ML VIAL SQ SCH ×2 (04:57→18:15)
[2020-07-23 05:14] LABS: ABG Base Excess 1 mEq/L (-2 to 3); ABG HCO3 27 mEq/L (21-27); ABG Oxygen Saturation 70 % (95-98); ABG PCO2 46 mmHg (35-45); ABG PH 7.37 pH Units (7.32-7.45); ABG PO2 38 mmHg (85-104); ABG TCO2 28 mEq/L (20-26); Blood Gas VT 520 cc
[2020-07-23] MEDS: Doxycycline 100 MG in 0.9 % Sodium Chloride Mini Bag 100 ML IVPB SCH ×2 (05:16→18:15)
[2020-07-23 05:25] LABS: ABG Base Excess -1 mEq/L (-2 to 3); ABG HCO3 24 mEq/L (21-27); ABG Oxygen Saturation 97 % (95-98); ABG PCO2 39 mmHg (35-45); ABG PO2 86 mmHg (85-104); ABG TCO2 25 mEq/L (20-26); Blood Gas VT 520 cc
[2020-07-23] MEDS ORDERED: 0.9 % Sodium Chloride 250 ML IVC PRN (07:09)
[2020-07-23] MEDS ORDERED: 0.9 % Sodium Chloride 250 ML ONE (07:28)
[2020-07-23] MEDS ORDERED: Vancomycin 1,000 MG VIAL ONE (07:28)
[2020-07-23] MEDS: Chlorhexidine Rinse 15 ML MOUTHWASH MM SCH ×3 (07:32→20:07)
[2020-07-23] MEDS: QUEtiapine Fumarate 25 MG TABLET GTUBE SCH ×2 (07:33→20:07)
[2020-07-23] MEDS: Insulin DETEMIR 100 UNIT/ML X5UNITS SQ SCH ×2 (07:34→20:08)
[2020-07-23] MEDS: MethylPREDNISolone 40 MG/ML VIAL IVP SCH (07:34)
[2020-07-23] MEDS: Albumin 25% 25gram/100mL 25 GM/100 ML IV.SOLN IVPB PRN (08:20)
[2020-07-23] MEDS ORDERED: Albumin 25% 12.5gm/50mL 12.5 GM/50 ML IV.SOLN ONE (08:21)
[2020-07-23] MEDS: Norepinephrine 4 MG/254 ML IV.SOLN IVC SCH (12:24)
[2020-07-23] MEDS: FentaNYL (PF) 1,000 MCG/100 ML IV.SOLN IVC SCH ×2 (12:25→20:06)
[2020-07-24] MEDS: Artificial Tears SOLN 15 ML BOTTLE BOTH EYES SCH ×5 (00:04→17:49)
[2020-07-24] MEDS: FentaNYL (PF) 1,000 MCG/100 ML IV.SOLN IVC SCH ×4 (00:05→17:41)
[2020-07-24] MEDS: Norepinephrine 4 MG/254 ML IV.SOLN IVC SCH ×2 (00:15→12:46)
[2020-07-24] MEDS: Insulin LISPRO 300 UNITS/3 ML VIAL SQ SCH ×4 (00:21→12:09)
[2020-07-24] MEDS: Ipratropium/Albuterol Neb 3 ML IH SCH ×4 (04:03→15:14)
[2020-07-24] MEDS: Pantoprazole 40 MG in 0.9 % Sodium Chloride Mini Bag 100 ML IVC SCH ×2 (04:47→09:43)
[2020-07-24 04:50] LABS: ABG Base Excess -1 mEq/L (-2 to 3); ABG HCO3 23 mEq/L (21-27); ABG Oxygen Saturation 100 % (95-98); ABG PCO2 37 mmHg (35-45); ABG PO2 224 mmHg (85-104); ABG TCO2 24 mEq/L (20-26); Blood Gas VT 520 cc
[2020-07-24] MEDS: Doxycycline 100 MG in 0.9 % Sodium Chloride Mini Bag 100 ML IVPB SCH (05:50)
[2020-07-24] MEDS: *HR* Heparin 5,000 UNIT/ML VIAL SQ SCH (05:51)
[2020-07-24] MEDS: Piperacillin/Tazobactam 3.375 GM in 0.9 % Sodium Chloride Mini Bag 100 ML IVPB SCH (05:52)
[2020-07-24] MEDS: Dexmedetomidine HCl 400 MCG/100 ML MLS IVC SCH (07:28)
[2020-07-24] MEDS: Norepinephrine 16 MG in 0.9 % Sodium Chloride 500 ML IVC SCH (07:31)
[2020-07-24] MEDS: Insulin DETEMIR 100 UNIT/ML X5UNITS SQ SCH (07:34)
[2020-07-24] MEDS ORDERED: 0.9 % Sodium Chloride 250 ML ONE (07:37)
[2020-07-24] MEDS ORDERED: Vancomycin 1,000 MG VIAL ONE (07:37)
[2020-07-24] MEDS: QUEtiapine Fumarate 25 MG TABLET GTUBE SCH (07:40)
[2020-07-24] MEDS: Chlorhexidine Rinse 15 ML MOUTHWASH MM SCH (07:40)
[2020-07-24] MEDS: MethylPREDNISolone 40 MG/ML VIAL IVP SCH (07:41)
[2020-07-24] MEDS: Levothyroxine Sodium 100 MCG VIAL IVP SCH (07:41)
[2020-07-24] MEDS ORDERED: Haloperidol Lactate 5 MG/ML VIAL IVP PRN (13:24)
[2020-07-24] MEDS ORDERED: *HR* LORazepam 2 MG/ML VIAL IVP PRN ×2 (13:24→16:49)
[2020-07-24] MEDS ORDERED: Ipratropium/Albuterol Neb 3 ML IH PRN (16:49)
[2020-07-24] MEDS ORDERED: Ondansetron 4 MG/2 ML VIAL IVP PRN (16:49)
[2020-07-24] MEDS ORDERED: Artificial Tears SOLN 15 ML BOTTLE BOTH EYES PRN (16:49)
[2020-07-25] MEDS: FentaNYL (PF) 1,000 MCG/100 ML IV.SOLN IVC SCH ×2 (02:31→11:27)
[2020-07-25 08:22] VITALS: BP 138/75
[2020-07-25] MEDS ORDERED: Scopolamine Patch 1.5 MG PATCH.TD72 TD SCH (08:45)
[2020-07-25] MEDS ORDERED: 0.9 % Sodium Chloride 250 ML ONE (09:02)
[2020-07-25] MEDS ORDERED: Vancomycin 1,000 MG VIAL ONE (09:02)
== END 2020-07-25 13:22 | disposition expired | DRG 329 ==
LOC: EMEROOARM 14:33 → 3ANU 14:33 → SUATTDRO 17:26 → 3ANU 18:52 → SUATTDRO 06-29 17:47 → 2NNU 07-01 16:07 → ICNU 07-08 04:28 → 2ANU 07-24 17:26
PROVIDERS: ADMIT Family Medicine; ATTEND Internal Medicine